=== PATIENT | female | born 1995 | race Caucasian/White ===

== ENCOUNTER 2017-01-18 16:53 | Inpatient (IN) | payer MEDICAID, OTHER ==
[~2017-01-18] VITALS: Ht 160 cm; Wt 71.0 kg
[2017-01-18] MEDS ORDERED: KETOROLAC 30 MG INJ IV STA (18:00)
[2017-01-18] MEDS ORDERED: ONDANSETRON 4 MG INJ IV STA (18:00)
[2017-01-18] MEDS ORDERED: SOD CHLORIDE 0.9% 1,000 ML IV ONE (18:00)
--- NOTE | 2017-01-18 18:00 | ERD ---
ER Documentation Chief Complaint Chief Complaint Right upper quad pain x 3 day, N/V (ROCIO CMCARTHY) HPI 21-year-old female presents emergency department for right upper abdominal pain for 3 days. Stated that she vomited a couple of times yesterday with nonbilious and nonbloody emesis. Concerned because she has family history of gallstones with cholecystectomy. her father and older brother had a cholecystectomy. LMP: January 04, 2017. A0. Denies headache, dizziness, blurred vision, neck pain, shoulder pain, chest pain , back pain, difficulty breathing, coughing, right lower abdominal pain, difficulty walking, constipation, diarrhea, or possibility of being , trauma, injury, falls, recent long travel, recent exposure to any illness, recent antibiotic use in the last 3 months, fever, chills. No known drug allergies. Past medical history of gastritis.. Surgical history : . Medication: Omeprazole. Social: Not working this time. Denies smoking, use of alcoholic beverages, use of illegal drugs. (ROCIO MCCARTHY) ROS All systems reviewed and are negative except as per history of present illness. (ROCIO MCCARTHY) Allergies Allergies: Coded Allergies: hydromorphone (Verified Adverse Reaction, Intermediate, CHEST PAIN, NAUSEA , HR LOW, 01/19/17) Physical Exam Vitals Vital Signs Date Time Temp Pulse Resp B/P Pulse Ox O2 Delivery O2 Flow Rate FiO2 01/18/17 20:13 87 20 143/87 100 Room Air 01/18/17 17:00 99.1 105 22 112/81 99 (CHELSEYMEKIFFI OROPEZA MD) Physical Exam Const: [] Head: Atraumatic Eyes: Normal Conjunctiva ENT: Normal External Ears, Nose and Mouth. Neck: Full range of motion..~ No meningismus. Resp: Clear to auscultation bilaterally Cardio: Regular rate and rhythm, no murmurs Abd: Normal bowel sounds. Right upper abdominal tenderness on light and deep palpation. There is no right lower/left upper/left lower abdominal tenderness and likely palpation. Negative on Rovsing sign. Negative Danielle sign. Able to jump once without developing right lower abdominal pain. No CVA tenderness. No peritoneal signs. Skin: No petechiae or rashes Back: No midline or flank tenderness Ext: No cyanosis, or edema Neur: Awake and alert Psych: Normal Mood and Affect (ROCIO MCCARTHY) Result Diagram: 01/19/17 0533 01/19/17 0527 Results 24 hrs Laboratory Tests Test 01/18/17 18:30 White Blood Count 10.810^3/ul Red Blood Count 4.6210^6/ul Hemoglobin 14.5g/dl Hematocrit 42.7% Mean Corpuscular Volume 92.4fl Mean Corpuscular Hemoglobin 31.4pg Mean Corpuscular Hemoglobin Concent 34.0g/dl Red Cell Distribution Width 11.7% Platelet Count 38563^3/UL Mean Platelet Volume 9.7fl Neutrophils % 70.0% Lymphocytes % 20.3% Monocytes % 7.8% Eosinophils % 1.3% Basophils % 0.4% Nucleated Red Blood Cells % 0.0/100WBC Neutrophils # 7.610^3/ul Lymphocytes # 2.210^3/ul Monocytes # 0.810^3/ul Eosinophils # 0.110^3/ul Basophils # 0.010^3/ul Nucleated Red Blood Cells # 0.010^3/ul Prothrombin Time 13.3Sec Prothrombin Time Ratio 1.1 INR International Normalized Ratio 1.01 Activated Partial Thromboplast Time 26.7Sec Urine Color YELLOW Urine Clarity SLIGHTLY CLOUDY Urine pH 7.0 Urine Specific [place] 1.013 Urine Ketones NEGATIVEmg/dL Urine Nitrite NEGATIVEmg/dL Urine Bilirubin NEGATIVEmg/dL Urine Urobilinogen 2+mg/dL Urine Leukocyte Esterase TRACELeu/ul Urine Microscopic RBC 3/HPF Urine Microscopic WBC 5/HPF Urine Squamous Epithelial Cells FEW/HPF Urine Bacteria FEW/HPF Urine Mucus FEW/HPF Urine Hemoglobin NEGATIVEmg/dL Urine Glucose NEGATIVEmg/dL Urine Total Protein NEGATIVEmg/dl Sodium Level 143mmol/L Potassium Level 3.1mmol/L Chloride Level 106mmol/L Carbon Dioxide Level 22mmol/L Anion Gap 18 Blood Urea Nitrogen 8mg/dl Creatinine 0.79mg/dl Glucose Level 75mg/dl Calcium Level 9.2mg/dl Total Bilirubin 1.6mg/dl Direct Bilirubin 0.00mg/dl Indirect Bilirubin 1.6mg/dl Aspartate Amino Transf (AST/SGOT) 86IU/L Alanine Aminotransferase (ALT/SGPT) 215IU/L Alkaline Phosphatase 199IU/L Total Protein 8.0g/dl Albumin 4.5g/dl Globulin 3.50g/dl Albumin/Globulin Ratio 1.28 Amylase Level 138U/L Lipase 391U/L Serum HCG, Qualitative NEGATIVE Current Medications Medications (Trade) Dose Ordered Sig/Serenity Route PRN Reason Start Time Stop Time Status Last Admin Dose Admin Sodium Chloride (NS) 1,000 ml @ 1,000 mls/hr Q1H ONCE IV 01/18/17 18:00 01/18/17 18:59 DC 01/18/17 18:39 Ondansetron HCl (Zofran Inj) 4 mg ONCE STAT IV 01/18/17 18:00 01/18/17 18:04 DC 01/18/17 18:39 Ketorolac Tromethamine (Toradol) 30 mg ONCE STAT IV 01/18/17 18:00 01/18/17 18:04 DC 01/18/17 18:39 Hydromorphone HCl (Dilaudid) 1 mg ONCE STAT IV 01/18/17 18:16 01/18/17 18:17 DC 01/18/17 18:39 IV Flush 10 ml 10 ml STK-MED ONCE .ROUTE 01/18/17 18:31 01/18/17 18:32 DC Sodium Chloride (NS) 100 ml @ ud STK-MED ONCE .ROUTE 01/18/17 18:31 01/18/17 18:32 DC Iohexol (Omnipaque 300mg/ ml) 150 ml STK-MED ONCE .ROUTE 01/18/17 18:31 01/18/17 18:32 DC Potassium Chloride (Klor-Con 20) 40 meq ONCE STAT PO 01/18/17 19:14 01/18/17 19:15 DC 01/18/17 19:35 Acetaminophen 500 mg 500 mg ONCE STAT PO 01/18/17 19:15 01/18/17 19:16 DC 01/18/17 19:35 Sodium Chloride (NS) 1,000 ml @ 200 mls/hr Q5H IV 01/18/17 21:47 01/19/17 12:43 (FIFI GALLEGOS MD) Procedures/MDM 21-year-old female presents emergency department for right upper abdominal pain for 3 days. Stated that she vomited a couple of times yesterday with nonbilious and nonbloody emesis. Concerned because she has family history of gallstones with cholecystectomy. her father and older brother had a cholecystectomy. LMP: January 04, 2017. A0. Denies headache, dizziness, blurred vision, neck pain, shoulder pain, chest pain , back pain, difficulty breathing, coughing, right lower abdominal pain, difficulty walking, constipation, diarrhea, or possibility of being , trauma, injury, falls, recent long travel, recent exposure to any illness, recent antibiotic use in the last 3 months, fever, chills. No known drug allergies. Past medical history of gastritis.. Surgical history : . Medication: Omeprazole. Social: Not working this time. Denies smoking, use of alcoholic beverages, use of illegal drugs. Physical exam: Right upper abdominal tenderness on light and deep palpation. There is no right lower/left upper/left lower abdominal tenderness and likely palpation. Negative on Rovsing sign. Negative Danielle sign. Able to jump once without developing right lower abdominal pain. No CVA tenderness. No peritoneal signs. Patient agreed with the diagnostic test, treatment, plan of care. POC urine : Negative. Urinalysis: Reviewed. Culture urine: Awaiting for results. Blood works: Hypokalemia. Elevated lipase. CT of the abdomen and pelvis with IV contrast: Abdominal ultrasound/gallbladder: Gallbladder stones and sludge without additional findings to suggest acute cholecystitis. Dilated common bile duct measuring 8.4 mm in diameter without a definite source of obstruction identified. MRCP can be performed for further evaluation. Treatment: IV insertion. Normal saline 1000 cc IV bolus. Zofran IV. Dilaudid IV. Toradol IV. K-Dur. Tylenol. Reevaluation: Mildly relieved of pain. Differential diagnosis: Acute cholecystitis versus pancreatitis versus diverticulitis versus nephrolithiasis versus appendicitis versus choledocholithiasis versus gastritis versus urinary tract infection Final diagnosis: Choledocholithiasis, mildly elevated lipase Case was discussed with supervising physician, Dr. Fifi Gallegos who agreed with my decision to admit the patient. She also stated that she will processed admission. (ROCIO MCCARTHY) Patient has labs and symptoms consistent with gallstone pancreatitis. There are no signs of cholangitis at this time. She will need admission and a GI consult in the morning for MRCP/ERCP. I discussed the case with the admitting physician , Dr. Rudolph, who agreed to admit the patient to Med/Surg. (FIFI GALLEGOS MD) Departure Diagnosis: Primary Impression: Acute gallstone pancreatitis Additional Impression: Choledocholithiasis Condition: ROCIO Arce Jan 18, 2017 18:00 FIFI GALLEGOS MD Jan 19, 2017 15:57
[2017-01-18] MEDS ORDERED: HYDROmorphONE 1 MG/ML SYG IV STA (18:16)
[2017-01-18] MEDS ORDERED: IOHEXOL 300MG/ML 150 ML BTL ONE (18:31)
[2017-01-18] MEDS ORDERED: SOD CHLORIDE 0.9% 100 ML ONE (18:31)
[2017-01-18 18:41] LABS: BASOPHILS % 0.4 % (0.0-2.0); EOSINOPHILS # 0.1 10^3/ul (0.0-0.5); EOSINOPHILS % 1.3 % (0.0-7.0); HEMATOCRIT 42.7 % (37.0-47.0); HEMOGLOBIN 14.5 g/dl (12.0-16.0); LYMPHOCYTES # 2.2 10^3/ul (0.8-2.9); LYMPHOCYTES % 20.3 % (15.0-51.0); MEAN CORPUSCULAR HEMOGLOBIN 31.4 pg (29.0-33.0); MEAN CORPUSCULAR VOLUME 92.4 fl (82.0-101.0); MEAN PLATELET VOLUME 9.7 fl (7.4-10.4); MONOCYTE # 0.8 10^3/ul (0.3-0.9); MONOCYTES % 7.8 % (0.0-11.0); NEUTROPHIL # 7.6 10^3/ul (1.6-7.5); PLATELET COUNT 425 10^3/UL (140-415); RED BLOOD COUNT 4.62 10^6/ul (4.20-5.40); RED CELL DISTRIBUTION WIDTH 11.7 % (11.5-14.5); WHITE BLOOD COUNT 10.8 10^3/ul (4.8-10.8)
[2017-01-18 18:45] LABS: ADD UMIC YES; UR ASCORBIC ACID NEGATIVE (NEGATIVE); UR BACTERIA FEW /HPF (NONE SEEN); UR BILIRUBIN (Dip) NEGATIVE (NEGATIVE); UR BLOOD (Dip) NEGATIVE (NEGATIVE); UR CLARITY SLIGHTLY CLOUDY (CLEAR); UR COLOR YELLOW (YELLOW); UR GLUCOSE (Dip) NEGATIVE (NEGATIVE); UR KETONES (Dip) NEGATIVE (NEGATIVE); UR LEUKOCYTE ESTERASE (Dip) TRACE Leu/ul (NEGATIVE); UR MUCUS FEW /HPF (NONE SEEN); UR NITRITE (Dip) NEGATIVE (NEGATIVE); UR RBC 3 /HPF (0-5); UR SPECIFIC GRAVITY (Dip) 1.013 (1.003-1.030); UR SQUAMOUS EPITHELIAL CELL FEW /HPF (FEW); UR TOTAL PROTEIN (Dip) NEGATIVE (NEGATIVE); UR UROBILINOGEN (Dip) 2+ mg/dL (NEGATIVE)
[2017-01-18 19:00] LABS: ALBUMIN 4.5 g/dl (3.3-4.9); ALBUMIN/GLOBULIN RATIO 1.28; BILIRUBIN,INDIRECT 1.6 mg/dl (0-1.1); BILIRUBIN,TOTAL 1.6 mg/dl (0.2-1.3); CALCIUM 9.2 mg/dl (8.4-10.2); CREATININE 0.79 mg/dl (0.44-1.00); POTASSIUM 3.1 mmol/L (3.5-5.1)
[2017-01-18 19:04] LABS: PT RATIO 1.1
[2017-01-18 19:05] LABS: PARTIAL THROMBOPLASTIN TIME 26.7 Sec (25.0-35.0)
[2017-01-18] MEDS ORDERED: POTASSIUM CHLORIDE (SR) 20 MEQ TAB PO STA (19:14)
[2017-01-18] MEDS ORDERED: ACETAMINOPHEN 500 MG TAB PO STA (19:15)
[2017-01-18 19:41] LABS: INR 1.01; PROTIME 13.3 Sec (12.2-14.2)
--- NOTE | 2017-01-18 19:56 | RADRPT ---
PROCEDURE: US abdomen right upper quadrant CLINICAL INDICATION: Abdominal pain. TECHNIQUE: Lugo scale and color Doppler ultrasound of the right upper quadrant of the abdomen was p erformed. COMPARISON: None available. FINDINGS: Pancreas: Visualized portions are unremarkable. Liver: Normal in size and echogenicity with no focal hepatic lesion. Hepatopedal flow in the main po rtal vein. Gallbladder: There stones and sludge within the gallbladder without gallbladder wall thickening or p ericholecystic fluid. Negative sonographic Johansen's sign. Common bile duct: 8.4 mm in diameter. Right Kidney: 10.3 cm in length. No nephrolithiasis, hydronephrosis, or mass. Ascites: None. IMPRESSION: 1. Gallbladder stones and sludge without additional findings to suggest acute cholecystitis. 2. Dilated common bile duct measuring 8.4 mm in diameter without a definite source of obstruction i dentified. MRCP can be performed for further evaluation. RPTAT: HLBP .Terrell Lilly MD, Date Time Electronically viewed and signed by .Terrell Lilly MD, MD on 01/18/2017 19:55 .P/
[2017-01-18] MEDS ORDERED: ACETAMINOPHEN 325 MG TAB PO PRN ×2 (22:00)
[2017-01-18] MEDS ORDERED: BISACODYL (EC) 5 MG TAB PO PRN (22:00)
[2017-01-18] MEDS ORDERED: ONDANSETRON 4 MG INJ IV PRN (22:00)
[2017-01-18] MEDS ORDERED: NACL 0.9% 3 ML SYG IV SCH (22:00)
[2017-01-18] MEDS ORDERED: DOCUSATE SODIUM 100 MG CAP PO PRN (22:00)
--- NOTE | 2017-01-18 22:47 | HP ---
Date/Time of Note Date/Time of Note DATE: 01/18/17 TIME: 22:46 Assessment/Plan VTE Prophylaxis VTE Prophylaxis Intervention: SCD's Assessment/Plan Chief Complaint/Hosp Course This is a 21 old female being admitted to the [facility] floor for: #1 gallstone pancreatitis: On ultrasound there appears to be a dilated common bile duct of 8.4 mm patient also has an increased lipase level as well as transaminitis, which makes gallstone pancreatitis more likely. At the current time will initiate aggressive IV fluid hydration, keep the patient n.p.o., bowel rest, IV narcotics for pain control, Zofran for nausea. Will start the patient on antibiotics as well with concern for possible development of cholecystitis and/or cholangitis. Will order an MRCP in a.m. Will consult GI as patient may likely need ERCP. Will check a lipid panel, A1c, #2 gastritis: Continue PPI #3 DVT GI prophylaxis: SCDs, home PPI Further treatment strategy will be implemented as per the clinical course Problems: HPI/ROS Admit Date/Time Admit Date/Time Hx of Present Illness cc: abdominal pain 21-year-old female presents emergency department for right upper abdominal pain for 3 days. Patient reports that the pain started on her right upper quadrant and one around to the back. She also is experiencing nausea and vomiting. She was in [place] the pain first started and went to hospital down there and they gave her pain medicine and then discharge her. Her pain got worse as when she came in today. Denies any fevers. LMP: January 04, 2017. A0. Denies headache, dizziness, blurred vision, neck pain, shoulder pain, chest pain , back pain, difficulty breathing, coughing, right lower abdominal pain, difficulty walking, constipation, diarrhea, or possibility of being , trauma, injury, falls, recent long travel, recent exposure to any illness, recent antibiotic use in the last 3 months, fever, chills. Allergies: NKDA Medications: Omeprazole ROS Const: As per HPI Eyes : No pain discharge or redness or change in visual acuity ENT: No pain, sore throat, congestion, congestion, dysphagia or discharge Respiratory: No shortness of breath, cough, sputum, wheezing, or pleuritic pain Cardiovascular: No chest pain, palpitation, PND, or edema GI : As per HPI Genitourinary: No dysuria, hematuria, flank pain , discharge or CVA tenderness Musculoskeletal: No joint pain, back pain, neck pain, restricted range of motion in neck or joints Skin: No rash, bruising or hives Neuro: No headache, dizziness, syncope, seizure, focal weakness Endocrine: No polyuria, polydipsia, temperature intolerance Psych: No hallucination, depression, anxiety or suicidal ideation PMH/Family/Social Past Medical History Gastritis Past Surgical History 1 Family History Significant Family History: no pertinent family hx Social History Alcohol Use: none Smoking Status: Never smoker Drug Use: none Exam/Review of Systems Vital Signs Vitals Vital Signs Date Time Temp Pulse Resp B/P Pulse Ox O2 Delivery O2 Flow Rate FiO2 01/18/17 20:13 87 20 143/87 100 Room Air 01/18/17 17:00 99.1 Exam Exam General: Patient is lying in bed, in mild distress from pain HEENT: Atraumatic, normocephalic. The pupils are equal, round and reactive. Extraocular motor are intact Neck: Supple with full range of motion. No rigidity or meningismus Lungs: Clear to auscultation bilaterally no crackles rales or wheezing Heart: Normal S1-S2, Regular rhythm and rate. No murmur, S3, or S4 Abdomen: Soft, tender to palpation at the epigastric region nondistended, normal bowel sounds, t Extremities: Normal to inspection, no edema no cyanosis Neurologic: Normal mental status, speech normal, cranial nerves II through XII are intact, motor and sensory are intact, no focal weakness Additional Comments PROCEDURE: US abdomen right upper quadrant CLINICAL INDICATION: Abdominal pain. TECHNIQUE: Lugo scale and color Doppler ultrasound of the right upper quadrant of the abdomen was performed. COMPARISON: None available. FINDINGS: Pancreas: Visualized portions are unremarkable. Liver: Normal in size and echogenicity with no focal hepatic lesion. Hepatopedal flow in the main portal vein. Gallbladder: There stones and sludge within the gallbladder without gallbladder wall thickening or pericholecystic fluid. Negative sonographic Johansen's sign. Common bile duct: 8.4 mm in diameter. Right Kidney: 10.3 cm in length. No nephrolithiasis, hydronephrosis, or mass. Ascites: None. IMPRESSION: 1. Gallbladder stones and sludge without additional findings to suggest acute cholecystitis. 2. Dilated common bile duct measuring 8.4 mm in diameter without a definite source of obstruction identified. MRCP can be performed for further evaluation. RPTAT: HLBP .Terrell Lilly MD, MD Date Time Electronically viewed and signed by .Terrell Lilly MD, on 01/18/2017 19:55 .P/ CC: ROCIO MCCARTHY Labs Result Diagram: 01/18/17 1830 01/18/17 1830 Medications Medications Current Medications Sodium Chloride (NS) 1,000 ml @ 200 mls/hr Q5H IV ; Start 01/18/17 at 21:47 Ondansetron HCl (Zofran Inj) 4 mg Q6H PRN IV NAUSEA AND/OR VOMITING; Start at 22:00 Acetaminophen (Tylenol Tab) 650 mg Q6H PRN PO PAIN LEVEL 1-3 OR FEVER; Start 01/18/17 at 22:00 Hydromorphone HCl (Dilaudid) 0.5 mg Q4H PRN IV SEVERE PAIN LEVEL 7-10; Start 01/18/17 at 22:00 Docusate Sodium (Colace) 100 mg Q12H PRN PO CONSTIPATION; Start 01/18/17 at 22 :00 Bisacodyl (Dulcolax) 5 mg DAILY PRN PO CONSTIPATION; Start 01/18/17 at 22:00 Pantoprazole 40 mg 40 mg DAILY@06 IV ; Start 01/19/17 at 06:00 Piperacillin Sod/ Tazobactam Sod (Zosyn 3.375gm/ 50 ml (Pmx)) 50 ml @ 100 mls/ hr Q6 IVPB ; Start 01/18/17 at 22:00 RUBEN MARCELO Jan 18, 2017 22:46
[2017-01-19] VITALS (17 sets, daily range): BP systolic 100–125; BP diastolic 58–84; PULSE 54–88; RESP 11–20; TEMP 97.9; Ht 160 cm; Wt 71.0 kg
[2017-01-19] MEDS: SOD CHLORIDE 0.9% 1,000 ML IV SCH ×7 (00:48→22:47)
[2017-01-19] MEDS: PIPER-TAZO 3.375 GM IV (PMX) 50 ML IVPB SCH ×6 (00:48→23:32)
[2017-01-19] MEDS: HYDROmorphONE 0.5 MG/0.5 ML SYG IV PRN ×2 (03:22→09:31)
[2017-01-19] MEDS: PANTOPRAZOLE 40 MG INJ IV SCH (05:33)
[2017-01-19 06:30] LABS: BASOPHILS % 0.3 % (0.0-2.0); EOSINOPHILS # 0.1 10^3/ul (0.0-0.5); EOSINOPHILS % 1.9 % (0.0-7.0); HEMATOCRIT 36.7 % (37.0-47.0); HEMOGLOBIN 12.3 g/dl (12.0-16.0); LYMPHOCYTES # 1.5 10^3/ul (0.8-2.9); LYMPHOCYTES % 21.3 % (15.0-51.0); MEAN CORPUSCULAR HEMOGLOBIN 31.6 pg (29.0-33.0); MEAN CORPUSCULAR HGB CONC 33.5 g/dl (32.0-37.0); MEAN CORPUSCULAR VOLUME 94.3 fl (82.0-101.0); MONOCYTE # 0.6 10^3/ul (0.3-0.9); MONOCYTES % 9.1 % (0.0-11.0); NEUTROPHIL # 4.7 10^3/ul (1.6-7.5); NEUTROPHILS % 67.1 % (39.0-77.0); PLATELET COUNT 336 10^3/UL (140-415); RED BLOOD COUNT 3.89 10^6/ul (4.20-5.40); RED CELL DISTRIBUTION WIDTH 11.9 % (11.5-14.5); WHITE BLOOD COUNT 6.9 10^3/ul (4.8-10.8)
[2017-01-19 07:05] LABS: ALBUMIN/GLOBULIN RATIO 0.9; BILIRUBIN,DIRECT 0.2 mg/dl (0.00-0.20); BILIRUBIN,INDIRECT 1.7 mg/dl (0-1.1); BILIRUBIN,TOTAL 1.9 mg/dl (0.2-1.3); CALCIUM 8.3 mg/dl (8.4-10.2); CHOL/HDL RATIO 2.8 RATIO; CREATININE 0.75 mg/dl (0.44-1.00); MAGNESIUM 1.7 mg/dl (1.7-2.5); TOTAL PROTEIN 6.3 g/dl (6.1-8.1)
[2017-01-19 07:26] LABS: THYROID STIMULATING HORMONE 1.15 MIU/L (0.465-4.680)
[2017-01-19] MEDS: ONDANSETRON 4 MG INJ IV PRN ×2 (09:31→21:46)
[2017-01-19] MEDS ORDERED: morphine 2 MG INJ IV PRN (11:30)
--- NOTE | 2017-01-19 14:51 | PN ---
Date/Time of Note Date/Time of Note DATE: 01/19/17 TIME: 14:45 Assessment/Plan VTE Prophylaxis VTE Prophylaxis Intervention: SCD's Lines/Catheters IV Catheter Type (from Nrsg): Saline Lock Assessment/Plan Assessment/Plan 1. Gallstone pancreatitis - Abdominal US showed dilated common bile duct of 8.4 mm - Lipase levels 391 - Continue on IVF and keep NPO - Zofran PRN for nausea - Pain control with Toradol and Morphine - Continue on IV antibiotics - Patient remains afebrile with nl WBC - MRCP ordered and awaiting results - GI consultation placed to Dr. Fiore and will await recommendations - LFT trending up 2. Gastritis - Continue PPI 3. Disposition - Continue monitoring on Med/Surg Subjective 24 Hr Interval Summary Free Text/Dictation Patient still experiencing epigastric/RUQ discomfort. After dose of Dilaudid this am patient felt chest discomfort, was garrett, and nauseated with episode of emesis. This same reaction occurred in ED and medication stopped. Patient improved and medications were adjusted. Exam/Review of Systems Vital Signs Vitals Vital Signs Date Time Temp Pulse Resp B/P Pulse Ox O2 Delivery O2 Flow Rate FiO2 01/19/17 13:21 97.4 55 18 123/59 100 01/19/17 11:03 Nasal Cannula 2.0 Intake and Output 01/18/17 01/18/17 01/19/17 15:00 23:00 07:00 Intake Total 1150 ml Output Total 1 ml Balance 1149 ml Exam General: Patient is lying in bed, mild distress secondary to affects of pain medications HEENT: NC/AT. PERRL, EOMI Neck: Supple with full range of motion. Lungs: Clear to auscultation bilaterally no crackles rales or wheezing Heart: Normal S1-S2, Regular rhythm and rate. No murmur, S3, or S4 Abdomen: Soft, tender to palpation at the epigastric region nondistended, normal bowel sounds, no rebound or guarding Extremities: Normal to inspection, no edema no cyanosis Neurologic: Normal mental status, speech normal, cranial nerves II through XII are intact, motor and sensory are intact, no focal weakness Results Result Diagram: 01/19/17 0533 01/19/17 0527 Results 24 hrs Laboratory Tests Test 01/18/17 18:30 01/19/17 05:27 01/19/17 05:33 White Blood Count 10.8 6.9 # Red Blood Count 4.62 3.89 L Hemoglobin 14.5 12.3 Hematocrit 42.7 36.7 L Mean Corpuscular Volume 92.4 94.3 Mean Corpuscular Hemoglobin 31.4 31.6 Mean Corpuscular Hemoglobin Concent 34.0 33.5 Red Cell Distribution Width 11.7 11.9 Platelet Count 425 H 336 # Mean Platelet Volume 9.7 10.0 Neutrophils % 70.0 67.1 Lymphocytes % 20.3 21.3 Monocytes % 7.8 9.1 Eosinophils % 1.3 1.9 Basophils % 0.4 0.3 Nucleated Red Blood Cells % 0.0 0.0 Neutrophils # 7.6 H 4.7 Lymphocytes # 2.2 1.5 Monocytes # 0.8 0.6 Eosinophils # 0.1 0.1 Basophils # 0.0 0.0 Nucleated Red Blood Cells # 0.0 0.0 Prothrombin Time 13.3 Prothrombin Time Ratio 1.1 INR International Normalized Ratio 1.01 Activated Partial Thromboplast Time 26.7 Urine Color YELLOW Urine Clarity SLIGHTLY CLOUDY A Urine pH 7.0 Urine Specific [place] 1.013 Urine Ketones NEGATIVE Urine Nitrite NEGATIVE Urine Bilirubin NEGATIVE Urine Urobilinogen 2+ H Urine Leukocyte Esterase TRACE A Urine Microscopic RBC 3 Urine Microscopic WBC 5 Urine Squamous Epithelial Cells FEW Urine Bacteria FEW A Urine Mucus FEW A Urine Hemoglobin NEGATIVE Urine Glucose NEGATIVE Urine Total Protein NEGATIVE Sodium Level 143 143 Potassium Level 3.1 L 4.0 Chloride Level 106 111 H Carbon Dioxide Level 22 26 Anion Gap 18 H 10 # Blood Urea Nitrogen 8 7 Creatinine 0.79 0.75 Glucose Level 75 89 Calcium Level 9.2 8.3 L Total Bilirubin 1.6 H 1.9 H Direct Bilirubin 0.00 0.20 # Indirect Bilirubin 1.6 H 1.7 H Aspartate Amino Transf (AST/SGOT) 86 H 185 H Alanine Aminotransferase (ALT/SGPT) 215 H 258 H Alkaline Phosphatase 199 H 150 H Total Protein 8.0 6.3 # Albumin 4.5 3.0 #L Globulin 3.50 H 3.30 H Albumin/Globulin Ratio 1.28 0.90 Amylase Level 138 H Lipase 391 H Serum HCG, Qualitative NEGATIVE Magnesium Level 1.7 Triglycerides Level 55 Cholesterol Level 116 LDL Cholesterol, Calculated 64 HDL Cholesterol 41 Cholesterol/HDL Ratio 2.8 Thyroid Stimulating Hormone (TSH) 1.150 Hemoglobin A1c 4.9 Medications Medications Current Medications Sodium Chloride (NS) 1,000 ml @ 200 mls/hr Q5H IV Last administered on 12:43; Admin Dose 200 MLS/HR; Start 01/18/17 at 21:47 Ondansetron HCl (Zofran Inj) 4 mg Q6H PRN IV NAUSEA AND/OR VOMITING Last administered on 01/19/17 09:31; Admin Dose 4 MG; Start 01/18/17 at 22:00 Acetaminophen (Tylenol Tab) 650 mg Q6H PRN PO PAIN LEVEL 1-3 OR FEVER; Start 01/18/17 at 22:00 Docusate Sodium (Colace) 100 mg Q12H PRN PO CONSTIPATION; Start 01/18/17 at 22 :00 Bisacodyl (Dulcolax) 5 mg DAILY PRN PO CONSTIPATION; Start 01/18/17 at 22:00 Pantoprazole 40 mg 40 mg DAILY@06 IV Last administered on 01/19/17 05:33; Admin Dose 40 MG; Start 01/19/17 at 06:00 Piperacillin Sod/ Tazobactam Sod (Zosyn 3.375gm/ 50 ml (Pmx)) 50 ml @ 100 mls/ hr Q6 IVPB Last administered on 01/19/17 12:42; Admin Dose 100 MLS/HR; Start 01/18/17 at 22:00 Ketorolac Tromethamine (Toradol) 30 mg Q6H PRN IV PAIN; Start 01/19/17 at 11: 30; Stop 01/22/17 at 11:29 Morphine Sulfate (morphine) 1 mg Q4H PRN IV PAIN LEVEL 4-6; Start 01/19/17 at 11:30 MELINDA MONTERO MD Jan 19, 2017 14:51
--- NOTE | 2017-01-19 15:44 | RADRPT ---
PROCEDURE: MRCP. CLINICAL INDICATION: Elevated liver function tests. TECHNIQUE: MRCP was performed. The following sequences were obtained: Three plane gradient echo localizers, coronal gradient echo images, breath hold axial T2-weighted fat saturation images, callie nal T2-weighted images, axial 3-D LAVA images, axial T2-weighted breath hold fast spin echo images, and 3-D coronal rotating MIP images of the biliary tree. COMPARISON: Right upper quadrant abdomen ultrasound dated 01/18/2017. FINDINGS: The liver is normal in size. There is normal signal intensity within the liver. There is no focal hepatic lesion. The spleen is normal in size and homogeneous in signal intensity. There are gallstones in the gallbladder and mild edema surrounding the gallbladder. Common bile duct is dilated measuring 8 mm as seen on prior ultrasound. There is a possible small st one in the distal common bile duct. The biliary system is otherwise unremarkable. The pancreatic duct is grossly normal. The kidneys are grossly normal. The abdominal aorta is not dilated. IMPRESSION: 1. Gallstones in the gallbladder and mild edema surrounding the gallbladder. This may indicate chol ecystitis. Clinical correlation is advised. 2. Dilated common bile duct measuring 8 mm as seen on prior ultrasound. 3. Possible small stone in the distal common bile duct. 4. Otherwise unremarkable study. Call report: A call report of the findings was made to Dr. Fiore on 01/19/2017 at 1530hours. RPTAT: QQ .Dung Whiting MD, Date Time Electronically viewed and signed by .Dung Whiting MD, on 01/19/2017 15:43 .R/
[2017-01-19] MEDS: KETOROLAC 30 MG INJ IV PRN (17:00)
--- NOTE | 2017-01-19 17:17 | CONS ---
DATE OF ADMISSION: 01/18/2017 DATE OF CONSULTATION: TYPE OF CONSULTATION: Gastroenterology. Dear Dr. Marcelo: Thank you for asking me to see Ms. Florez in GI consultation. HISTORY OF PRESENT ILLNESS: Ms. Florez is a 21-year-old female who has been experiencing ab dominal pain for the past several days, mostly in the upper abdomen, and because of the persistent a bdominal pain, she presented to the emergency room. Ultrasound showed gallstones with biliary dilat ation, and liver functions were found to be abnormal. MRCP showed evidence of a stone in the distal common bile duct with biliary dilatation. Hence, a GI consultation is requested. The patient has no history of vomiting blood or passing blood from the rectum. No diarrhea. PAST MEDICAL HISTORY: She had a baby recently. REVIEW OF SYSTEMS: Totally unremarkable. No history of cardiovascular complaints or any other medi susan complaints. MEDICATIONS PRIOR TO THE ADMISSION: Include none. FAMILY HISTORY: Unremarkable. PHYSICAL EXAMINATION: GENERAL: The patient is a 21-year-old female who at this time is alert, well built. VITAL SIGNS: She is afebrile. Temperature is 97.4. Blood pressure is 123/59. CARDIOVASCULAR: Normal heart sounds. RESPIRATORY: Normal breath sounds. ABDOMEN: Showed a soft abdomen with no palpable masses, no tenderness, no distention. LABORATORY WORKUP: Shows WBC count 6900, hemoglobin 12.3. Bilirubin 1.98, went up from 1.6. AST i s 185, ALT is 258, alk phos 150. Amylase 138. Lipase is 391. As mentioned earlier on ultrasound, MRCP showed cholelithiasis and choledocholithiasis. CLINICAL IMPRESSION: The patient presenting with abdominal pain with jaundice. MRCP showed choledo cholithiasis and she probably represents cholangitis due to choledocholithiasis. PLAN: Recommend proceeding with ERCP. I discussed this with the patient, and the patient agreed th rough waterproofer. She understood and will proceed with ERCP. Once again, doctor, thank you for this consultation. Dictated By: BRIAN HUGHES/NTS Conf#: [id number] DID#: [id number] CC: RUBEN MARCELO MD;*EndCC*
[2017-01-19] MEDS ORDERED: GLYCOPYRROLATE 1 MG INJ ONE (18:11)
[2017-01-19] MEDS ORDERED: ROCURONIUM 50 MG INJ ONE (18:11)
[2017-01-19] MEDS ORDERED: SUCCINYLCHOLINE CHLORIDE 100 MG/5 ML SYG IV ONE (18:11)
[2017-01-19] MEDS ORDERED: NEOSTIGMINE 3 MG/3 ML SYRINGE ONE (18:11)
[2017-01-19] MEDS ORDERED: PROPOFOL 20 ML ONE (18:11)
[2017-01-19] MEDS ORDERED: LIDOCAINE 2% (SDV) 5 ML INJ ONE (18:11)
[2017-01-19] MEDS ORDERED: ONDANSETRON 4 MG INJ ONE (18:29)
[2017-01-19] MEDS ORDERED: METOCLOPRAMIDE 10 MG INJ ONE (18:29)
[2017-01-19] MEDS ORDERED: ONDANSETRON 4 MG INJ IV PRN (18:30)
[2017-01-19] MEDS ORDERED: MEPERIDINE 25 MG INJ IV PRN (18:30)
[2017-01-19] MEDS ORDERED: FENTAnyl 50 MCG/ML VIAL IV PRN ×3 (18:30)
[2017-01-19] MEDS ORDERED: METOCLOPRAMIDE 10 MG INJ IV PRN (18:30)
[2017-01-19] MEDS ORDERED: MIDAZOLAM 1 MG/ML 2 ML INJ IV PRN (18:30)
[2017-01-19] MEDS ORDERED: DIPHENHYDRAMINE 50 MG INJ IV PRN (18:30)
--- NOTE | 2017-01-19 19:02 | OPR ---
Date/Time of Note Date/Time of Note DATE: 01/19/17 TIME: 19:00 Operative Report Procedure Date: Jan 19, 2017 Preoperative Diagnosis cbd stone Postoperative Diagnosis cbd stone Operation/Procedure Performed ercp Surgeon see signature line Diagrammer none Anesthesia Type: general Anesthesiologist: SAMEER DEXTER MD Estimated Blood Loss: none Transfusion none Specimen gastric bx Grafts/Implants cbd stent placed Complications none Pt Condition Post Procedure: stable Disposition: PACU Indications cbd stone Procedure Description ercp cbd stone removel cbd stent placement see dictation BRIAN ESPINO MD Jan 19, 2017 19:02
--- NOTE | 2017-01-19 20:13 | GILP ---
DATE OF PROCEDURE: 01/19/2017 NAME OF PROCEDURE: ERCP, removal of CBD stone and placement of a CBD stent. PREOPERATIVE DIAGNOSIS: Common bile duct stone. POSTOPERATIVE DIAGNOSES: Common bile duct stone. DESCRIPTION OF PROCEDURE: After informed written consent was obtained, the patient was intubated by anesthesiologist, Dr. Anaya. When the patient was sleeping in prone position, Olympus video side-vie wing duodenoscope was inserted into the oropharynx and then into the esophagus and then stomach and then duodenum. Stomach showed evidence of a diffuse nodularity. Scope at this time was advanced in to the duodenum. The ampulla was located in normal location with normal morphology. By using the D reamtome, cannulation of the common bile duct was performed. Filling defect was noted in the lower part of the CBD. At this time, the gallbladder also was visualized, which showed gallstones. The r est of the bile duct appeared normal. At this time, sphincterotomy was performed, about a 7 mm cut of the ampulla was made by using the cutting wire of the Dreamtome. Subsequently, by using the ston e extraction balloon, the stone was removed from the common bile duct, which measured at least about 7 to 8 mm in diameter. More sweeping of the common bile duct was performed. No more stones were n oted. At this time, a 10 x 7 [place] type of CBD stent was placed into the common bile duct acros s the ampulla into the duodenum. Photographs were obtained. Biopsies of the stomach were obtained and the procedure was terminated. PLAN: Recommend proceed with cholecystectomy. Dictated By: BRIAN HUGHES/ELIZA Conf#: [id number] DID#: [id number] CC: RUBEN MARCELO MD;*EndCC*
[2017-01-20 02:30] VITALS: BP 91/54; RESP 20
[2017-01-20] MEDS: SOD CHLORIDE 0.9% 1,000 ML IV SCH ×3 (02:31→13:47)
[2017-01-20 05:32] LABS: BASOPHILS % 0.4 % (0.0-2.0); EOSINOPHILS # 0.1 10^3/ul (0.0-0.5); EOSINOPHILS % 1.8 % (0.0-7.0); HEMATOCRIT 35.6 % (37.0-47.0); LYMPHOCYTES # 1.5 10^3/ul (0.8-2.9); LYMPHOCYTES % 20.3 % (15.0-51.0); MEAN CORPUSCULAR HEMOGLOBIN 32.3 pg (29.0-33.0); MEAN CORPUSCULAR HGB CONC 33.7 g/dl (32.0-37.0); MEAN CORPUSCULAR VOLUME 95.7 fl (82.0-101.0); MEAN PLATELET VOLUME 9.9 fl (7.4-10.4); MONOCYTE # 0.5 10^3/ul (0.3-0.9); MONOCYTES % 6.9 % (0.0-11.0); NEUTROPHIL # 5.2 10^3/ul (1.6-7.5); NEUTROPHILS % 70.3 % (39.0-77.0); PLATELET COUNT 300 10^3/UL (140-415); RED BLOOD COUNT 3.72 10^6/ul (4.20-5.40); RED CELL DISTRIBUTION WIDTH 11.6 % (11.5-14.5); WHITE BLOOD COUNT 7.4 10^3/ul (4.8-10.8)
[2017-01-20] MEDS: PIPER-TAZO 3.375 GM IV (PMX) 50 ML IVPB SCH ×4 (05:38→23:39)
[2017-01-20] MEDS: PANTOPRAZOLE 40 MG INJ IV SCH (05:38)
[2017-01-20 06:06] LABS: ALBUMIN 3.4 g/dl (3.3-4.9); ALBUMIN/GLOBULIN RATIO 1.09; BILIRUBIN,INDIRECT 2.2 mg/dl (0-1.1); BILIRUBIN,TOTAL 2.2 mg/dl (0.2-1.3); CALCIUM 8.3 mg/dl (8.4-10.2); CREATININE 0.67 mg/dl (0.44-1.00); MAGNESIUM 1.5 mg/dl (1.7-2.5); POTASSIUM 3.7 mmol/L (3.5-5.1); TOTAL PROTEIN 6.5 g/dl (6.1-8.1)
[2017-01-20 07:23] VITALS: BP 105/56; RESP 20
--- NOTE | 2017-01-20 09:16 | PN ---
Date/Time of Note Date/Time of Note DATE: 01/20/17 TIME: 09:16 Assessment/Plan VTE Prophylaxis VTE Prophylaxis Intervention: SCD's Lines/Catheters IV [facility]from [facility]): Saline Lock Assessment/Plan Assessment/Plan 1. Gallstone pancreatitis s/p ERCP - Patient underwent ERCP yesterday and patient tolerated procedure. - Started on clear liquid and advance as tolerated. - Encourage PO pain medications for relief - IV antibiotics - Abdominal US showed dilated common bile duct of 8.4 mm - Lipase levels 391 - Zofran PRN for nausea - Patient remains afebrile with nl WBC - LFT still elevated 2. Acute cholecystitis - MRCP shows acute cholecystitis - LFT elevated, Tbil trending up - Will consult General surgery to evaluate if needs surgery now or as outpatient 3. Disposition - Continue monitoring on Med/Surg - Surgery consult placed to Dr. Patricia Subjective 24 Hr Interval Summary Free Text/Dictation patient experiencing lower abdominal pain s/p ERCP but controlled with pain medications. Will try feeding patient today and will advance as tolerated. Exam/Review of Systems Vital Signs Vitals Vital Signs Date Time Temp Pulse Resp B/P Pulse Ox O2 Delivery O2 Flow Rate FiO2 01/20/17 07:23 98.9 81 20 105/56 98 01/19/17 19:47 Room Air 01/19/17 11:03 2.0 Intake and Output 01/19/17 01/19/17 01/20/17 14:59 22:59 06:59 Intake Total 1000 ml 700 ml 1700 ml Output Total 900 ml 800 ml Balance 1000 ml -200 ml 900 ml Exam General: Patient is lying in bed, no acute distress HEENT: NC/AT. PERRL, EOMI Neck: Supple with full range of motion. Lungs: Clear to auscultation bilaterally no crackles rales or wheezing Heart: Normal S1-S2, Regular rhythm and rate. No murmur, S3, or S4 Abdomen: Soft, tender to palpation at lower abdominal area, normal bowel sounds , no rebound or guarding Extremities: Normal to inspection, no edema no cyanosis Neurologic: Normal mental status, speech normal, cranial nerves II through XII are intact, motor and sensory are intact, no focal weakness Results Result Diagram: 01/20/17 0509 01/20/17 0509 Results 24 hrs Laboratory Tests Test 01/20/17 05:09 White Blood Count 7.4 Red Blood Count 3.72 L Hemoglobin 12.0 Hematocrit 35.6 L Mean Corpuscular Volume 95.7 Mean Corpuscular Hemoglobin 32.3 Mean Corpuscular Hemoglobin Concent 33.7 Red Cell Distribution Width 11.6 Platelet Count 300 Mean Platelet Volume 9.9 Neutrophils % 70.3 Lymphocytes % 20.3 Monocytes % 6.9 Eosinophils % 1.8 Basophils % 0.4 Nucleated Red Blood Cells % 0.0 Neutrophils # 5.2 Lymphocytes # 1.5 Monocytes # 0.5 Eosinophils # 0.1 Basophils # 0.0 Nucleated Red Blood Cells # 0.0 Sodium Level 141 Potassium Level 3.7 Chloride Level 109 Carbon Dioxide Level 20 L Anion Gap 16 Blood Urea Nitrogen 5 L Creatinine 0.67 Glucose Level 68 #L Calcium Level 8.3 L Magnesium Level 1.5 L Total Bilirubin 2.2 H Direct Bilirubin 0.00 # Indirect Bilirubin 2.2 H Aspartate Amino Transf (AST/SGOT) 61 H Alanine Aminotransferase (ALT/SGPT) 221 H Alkaline Phosphatase 154 H Total Protein 6.5 Albumin 3.4 Globulin 3.10 Albumin/Globulin Ratio 1.09 Medications Medications Current Medications Sodium Chloride (NS) 1,000 ml @ 200 mls/hr Q5H IV Last administered on 08:25; Admin Dose 200 MLS/HR; Start 01/18/17 at 21:47 Ondansetron HCl (Zofran Inj) 4 mg Q6H PRN IV NAUSEA AND/OR VOMITING Last administered on 01/19/17 21:46; Admin Dose 4 MG; Start 01/18/17 at 22:00 Acetaminophen (Tylenol Tab) 650 mg Q6H PRN PO PAIN LEVEL 1-3 OR FEVER; Start 01/18/17 at 22:00 Docusate Sodium (Colace) 100 mg Q12H PRN PO CONSTIPATION; Start 01/18/17 at 22 :00 Bisacodyl (Dulcolax) 5 mg DAILY PRN PO CONSTIPATION; Start 01/18/17 at 22:00 Pantoprazole 40 mg 40 mg DAILY@06 IV Last administered on 01/20/17 05:38; Admin Dose 40 MG; Start 01/19/17 at 06:00 Piperacillin Sod/ Tazobactam Sod (Zosyn 3.375gm/ 50 ml (Pmx)) 50 ml @ 100 mls/ hr Q6 IVPB Last administered on 01/20/17 05:38; Admin Dose 100 MLS/HR; Start 01/18/17 at 22:00 Ketorolac Tromethamine (Toradol) 30 mg Q6H PRN IV PAIN Last administered on 17:00; Admin Dose 30 MG; Start 01/19/17 at 11:30; Stop 01/22/17 at 11: 29 Morphine Sulfate (morphine) 1 mg Q4H PRN IV PAIN LEVEL 4-6; Start 01/19/17 at 11:30 MELINDA MONTERO MD Jan 20, 2017 09:16
[2017-01-20] MEDS: KETOROLAC 30 MG INJ IV PRN (09:32)
[2017-01-20] MEDS ORDERED: MAGNESIUM SULFATE 2 GM/50 ML 50 ML IVPB ONE (10:00)
[2017-01-20 13:28] VITALS: BP 99/55; RESP 20
--- NOTE | 2017-01-20 19:50 | CONS ---
Date/Time of Note Date/Time of Note DATE: 01/20/17 TIME: 19:39 Assessment/Plan Assessment/Plan Chief Complaint/Hosp Course 1. Abdominal pain with cholelithiasis, choledocholithiasis, gallstone pancreatitis, status post ERCP. -Eventual outpatient laparoscopic cholecystectomy -Judicious fluid management to allow pancreatitis to improve -Pain control 2. Transaminitis secondary to above. -As above 3. Gastritis -Diet and lifestyle optimization 4. BMI 28 -Encourage nutrition optimization -Encourage exercise optimization Thank you very much for consulting me in this patient's care, Problems: Consultation Date/Type/Reason Admit Date/Time Date of Consultation: Jan 20, 2017 Type of Consultation: G. Surgical Reason for Consultation Gallstone pancreatitis Transaminitis Choledocholithiasis s/p ercp Referring Provider: MELINDA MONTERO MD Hx of Present Illness Sabina Florez is a 21yo female who presents to emergency department for right upper abdominal pain for 3 days. Patient reports that the pain started on her right upper quadrant and radiated to the back. She also is experiencing nausea and vomiting. She was in [place] the pain first started and went to hospital down there and they gave her pain medicine and then discharge her. Her pain got worse she presented here. Denies any fevers, chills, cp, sob, cough, sz, rash, bennett, dizziness, visual or neuro changes. Patient was found to have choledocholithiasis with gs pancreatitis. She underwent ercp and stent by Dr. Fiore. Surgical consult now obtained for further evaluation and treatment. 12 point ros negative unless addressed in hpi Past Medical History Gastritis BMI 28 Cholelithiasis Choledocholithiasis Dilated CBD Pancreatitis Transaminitis with Hyperbilirubinemia Past Surgical History 1 ERCP Family History Significant Family History: no pertinent family hx Social History Alcohol Use: none Smoking Status: Never smoker Drug Use: none Exam/Review of Systems Vital Signs Vitals Vital Signs Date Time Temp Pulse Resp B/P Pulse Ox O2 Delivery O2 Flow Rate FiO2 01/20/17 13:28 98.5 84 20 99/55 100 01/19/17 19:47 Room Air 01/19/17 11:03 2.0 Intake and Output 01/19/17 01/19/17 01/20/17 15:00 23:00 07:00 Intake Total 1000 ml 700 ml 1700 ml Output Total 900 ml 800 ml Balance 1000 ml -200 ml 900 ml Exam Constitutional: alert, obese, oriented, No distress Psych: nl mood/affect, No anxiety Head: atraumatic, normocephalic Eyes: EOMI, PERRL, nl conjunctiva, No icteric ENMT: mucosa pink and moist, nl external ears & nose, nl lips & teeth, nl nasal mucosa & septum Neck: non-tender, supple, No jvd Respiratory: normal air movement, No congested cough, No labored breathing Cardiovascular: regular rate and rhythm, No edema Gastrointestinal: soft, tender (Minimal epigastric ), No distended, No rebound or guarding Musculoskeletal: nl extremities to inspection, nl gait and stance, No joint tenderness Extremities: normal pulses, No calf tenderness, No cyanosis Neurological: nl mental status, nl speech, nl strength Skin: nl turgor, No diaphoresis, No rash or lesions Lymph: nl lymph nodes, nontender Results Result Diagram: 01/20/17 0509 01/20/17 0509 Results 24 hrs Laboratory Tests Test 01/20/17 05:09 White Blood Count 7.4 Red Blood Count 3.72 L Hemoglobin 12.0 Hematocrit 35.6 L Mean Corpuscular Volume 95.7 Mean Corpuscular Hemoglobin 32.3 Mean Corpuscular Hemoglobin Concent 33.7 Red Cell Distribution Width 11.6 Platelet Count 300 Mean Platelet Volume 9.9 Neutrophils % 70.3 Lymphocytes % 20.3 Monocytes % 6.9 Eosinophils % 1.8 Basophils % 0.4 Nucleated Red Blood Cells % 0.0 Neutrophils # 5.2 Lymphocytes # 1.5 Monocytes # 0.5 Eosinophils # 0.1 Basophils # 0.0 Nucleated Red Blood Cells # 0.0 Sodium Level 141 Potassium Level 3.7 Chloride Level 109 Carbon Dioxide Level 20 L Anion Gap 16 Blood Urea Nitrogen 5 L Creatinine 0.67 Glucose Level 68 #L Calcium Level 8.3 L Magnesium Level 1.5 L Total Bilirubin 2.2 H Direct Bilirubin 0.00 # Indirect Bilirubin 2.2 H Aspartate Amino Transf (AST/SGOT) 61 H Alanine Aminotransferase (ALT/SGPT) 221 H Alkaline Phosphatase 154 H Total Protein 6.5 Albumin 3.4 Globulin 3.10 Albumin/Globulin Ratio 1.09 Medications Medications Current Medications Ondansetron HCl (Zofran Inj) 4 mg Q6H PRN IV NAUSEA AND/OR VOMITING Last administered on 01/19/17 21:46; Admin Dose 4 MG; Start 01/18/17 at 22:00 Acetaminophen (Tylenol Tab) 650 mg Q6H PRN PO PAIN LEVEL 1-3 OR FEVER; Start 01/18/17 at 22:00 Docusate Sodium (Colace) 100 mg Q12H PRN PO CONSTIPATION; Start 01/18/17 at 22 :00 Bisacodyl (Dulcolax) 5 mg DAILY PRN PO CONSTIPATION; Start 01/18/17 at 22:00 Pantoprazole 40 mg 40 mg DAILY@06 IV Last administered on 01/20/17 05:38; Admin Dose 40 MG; Start 01/19/17 at 06:00 Piperacillin Sod/ Tazobactam Sod (Zosyn 3.375gm/ 50 ml (Pmx)) 50 ml @ 100 mls/ hr Q6 IVPB Last administered on 01/20/17 17:54; Admin Dose 100 MLS/HR; Start 01/18/17 at 22:00 Ketorolac Tromethamine (Toradol) 30 mg Q6H PRN IV PAIN Last administered on 09:32; Admin Dose 30 MG; Start 01/19/17 at 11:30; Stop 01/22/17 at 11: 29 Morphine Sulfate (morphine) 1 mg Q4H PRN IV PAIN LEVEL 4-6; Start 01/19/17 at 11:30 Acetaminophen/ Hydrocodone Bitart ([place] (5/325)) 1 tab Q4H PRN PO PAIN LEVEL 4 -6; Start 01/20/17 at 16:30 LILIANE SAINI MD Jan 20, 2017 19:49
[2017-01-20] MEDS: HYDROCODONE/APAP (5/325) TAB PO PRN (19:59)
[2017-01-20 20:00] VITALS: BP 106/62; RESP 16
[2017-01-21] MEDS: KETOROLAC 30 MG INJ IV PRN ×2 (02:18→16:53)
[2017-01-21 02:26] VITALS: BP 92/55; RESP 14
[2017-01-21] MEDS: PIPER-TAZO 3.375 GM IV (PMX) 50 ML IVPB SCH ×4 (05:32→23:50)
[2017-01-21] MEDS: PANTOPRAZOLE 40 MG INJ IV SCH (05:32)
[2017-01-21 06:21] LABS: BASOPHILS % 0.4 % (0.0-2.0); EOSINOPHILS # 0.3 10^3/ul (0.0-0.5); EOSINOPHILS % 4.9 % (0.0-7.0); HEMATOCRIT 34.5 % (37.0-47.0); HEMOGLOBIN 11.6 g/dl (12.0-16.0); LYMPHOCYTES # 1.5 10^3/ul (0.8-2.9); LYMPHOCYTES % 26.7 % (15.0-51.0); MEAN CORPUSCULAR HEMOGLOBIN 31.9 pg (29.0-33.0); MEAN CORPUSCULAR HGB CONC 33.6 g/dl (32.0-37.0); MEAN CORPUSCULAR VOLUME 94.8 fl (82.0-101.0); MEAN PLATELET VOLUME 10.3 fl (7.4-10.4); MONOCYTE # 0.5 10^3/ul (0.3-0.9); MONOCYTES % 8.6 % (0.0-11.0); NEUTROPHIL # 3.2 10^3/ul (1.6-7.5); PLATELET COUNT 305 10^3/UL (140-415); RED BLOOD COUNT 3.64 10^6/ul (4.20-5.40); RED CELL DISTRIBUTION WIDTH 11.7 % (11.5-14.5); WHITE BLOOD COUNT 5.5 10^3/ul (4.8-10.8)
[2017-01-21 07:32] VITALS: BP 116/58; RESP 18
[2017-01-21 07:32] LABS: ALBUMIN 2.8 g/dl (3.3-4.9); ALBUMIN/GLOBULIN RATIO 0.93; CREATININE 0.76 mg/dl (0.44-1.00); MAGNESIUM 1.9 mg/dl (1.7-2.5); TOTAL PROTEIN 5.8 g/dl (6.1-8.1)
--- NOTE | 2017-01-21 14:35 | PN ---
Date/Time of Note Date/Time of Note DATE: 01/21/17 TIME: 14:30 Assessment/Plan Lines/Catheters IV [facility] (from [facility]): Saline Lock Assessment/Plan Chief Complaint/Hosp Course 1. Abdominal pain with cholelithiasis, choledocholithiasis, gallstone pancreatitis, status post ERCP. Wants to have surgery this hospitalization -Lap yaya this coming week -Judicious fluid management to allow pancreatitis to improve -Pain control 2. Transaminitis secondary to above. Improving -As above 3. Gastritis -Diet and lifestyle optimization 4. BMI 28 -Encourage nutrition optimization -Encourage exercise optimization Thank you, Problems: Subjective 24 Hr Interval Summary Abdominal pain persisting with food intake. Prefers to have surgery. No fevers , chills, cp, sob, cough, sz, rash, bennett, dizziness, visual or neuro changes. Bowel function. Exam/Review of Systems Vital Signs Vitals Vital Signs Date Time Temp Pulse Resp B/P Pulse Ox O2 Delivery O2 Flow Rate FiO2 01/21/17 07:32 98.0 64 18 116/58 99 01/19/17 19:47 Room Air 01/19/17 11:03 2.0 Intake and Output 01/20/17 01/20/17 01/21/17 15:00 23:00 07:00 Intake Total 400 ml 1670 ml 100 ml Output Total 1150 ml Balance 400 ml 520 ml 100 ml Exam Free Text/Dictation Constitutional: alert, obese, oriented, No distress Psych: nl mood/affect, No anxiety Head: atraumatic, normocephalic Eyes: EOMI, PERRL, nl conjunctiva, No icteric ENMT: mucosa pink and moist, nl external ears & nose, nl lips & teeth, nl nasal mucosa & septum Neck: non-tender, supple, No jvd Respiratory: normal air movement, No congested cough, No labored breathing Cardiovascular: regular rate and rhythm, No edema Gastrointestinal: soft, tender (Minimal epigastric/ruq), No distended, No rebound or guarding. Negative murphys Musculoskeletal: nl extremities to inspection, nl gait and stance, No joint tenderness Extremities: normal pulses, No calf tenderness, No cyanosis Neurological: nl mental status, nl speech, nl strength Skin: nl turgor, No diaphoresis, No rash or lesions Lymph: nl lymph nodes, nontender Results Result Diagram: 01/21/17 0521 01/21/17 0521 LILIANE SAINI MD Jan 21, 2017 14:35
--- NOTE | 2017-01-21 14:50 | PN ---
Date/Time of Note Date/Time of Note DATE: 01/21/17 TIME: 14:42 Assessment/Plan VTE Prophylaxis VTE Prophylaxis Intervention: SCD's Lines/Catheters IV Catheter Type (from [facility]): Saline Lock Assessment/Plan Chief Complaint/Hosp Course Assessment/Plan 1. Gallstone pancreatitis s/p ERCP - Patient underwent ERCP yesterday and patient tolerated procedure well, stent placed - Started on clear liquid and advance as tolerated. - Encourage PO pain medications for relief - IV antibiotics - Abdominal US showed dilated common bile duct of 8.4 mm - Lipase levels 391 - Zofran PRN for nausea - Patient remains afebrile with nl WBC - LFT still elevated 2. Acute cholecystitis - MRCP shows acute cholecystitis - LFT elevated, Tbil trending up - general surgery to perform lap yaya this week due to worsening abdominal pain 3. Disposition - Continue monitoring on Med/Surg - monitor abdominal pain, worsened - lap yaya likely this week Problems: Subjective 24 Hr Interval Summary Free Text/Dictation worsening abdominal pain Exam/Review of Systems Vital Signs Vitals Vital Signs Date Time Temp Pulse Resp B/P Pulse Ox O2 Delivery O2 Flow Rate FiO2 01/21/17 07:32 98.0 64 18 116/58 99 01/19/17 19:47 Room Air 01/19/17 11:03 2.0 Intake and Output 01/20/17 01/20/17 01/21/17 15:00 23:00 07:00 Intake Total 400 ml 1670 ml 100 ml Output Total 1150 ml Balance 400 ml 520 ml 100 ml Exam General: Patient is lying in bed, no acute distress HEENT: NC/AT. PERRL, EOMI Neck: Supple with full range of motion. Lungs: Clear to auscultation bilaterally no crackles rales or wheezing Heart: Normal S1-S2, Regular rhythm and rate. No murmur, S3, or S4 Abdomen: Soft, tender to palpation RUQ, normal bowel sounds, no rebound or guarding Extremities: Normal to inspection, no edema no cyanosis Neurologic: moves all extremities spontaneously Results Result Diagram: 01/21/1752001/21/17520 Results 24 hrs Laboratory Tests Test 01/21/17 05:21 White Blood Count 5.5 # Red Blood Count 3.64 L Hemoglobin 11.6 L Hematocrit 34.5 L Mean Corpuscular Volume 94.8 Mean Corpuscular Hemoglobin 31.9 Mean Corpuscular Hemoglobin Concent 33.6 Red Cell Distribution Width 11.7 Platelet Count 305 Mean Platelet Volume 10.3 Neutrophils % 59.0 Lymphocytes % 26.7 Monocytes % 8.6 Eosinophils % 4.9 Basophils % 0.4 Nucleated Red Blood Cells % 0.0 Neutrophils # 3.2 Lymphocytes # 1.5 Monocytes # 0.5 Eosinophils # 0.3 Basophils # 0.0 Nucleated Red Blood Cells # 0.0 Sodium Level 142 Potassium Level 4.0 Chloride Level 109 Carbon Dioxide Level 24 Anion Gap 13 Blood Urea Nitrogen 7 Creatinine 0.76 Glucose Level 87 Calcium Level 8.0 L Magnesium Level 1.9 Total Bilirubin 1.0 Direct Bilirubin 0.00 Indirect Bilirubin 1.0 Aspartate Amino Transf (AST/SGOT) 32 Alanine Aminotransferase (ALT/SGPT) 146 H Alkaline Phosphatase 119 Total Protein 5.8 L Albumin 2.8 L Globulin 3.00 Albumin/Globulin Ratio 0.93 Medications Medications Current Medications Ondansetron HCl (Zofran Inj) 4 mg Q6H PRN IV NAUSEA AND/OR VOMITING Last administered on 01/19/17 21:46; Admin Dose 4 MG; Start 01/18/17 at 22:00 Acetaminophen (Tylenol Tab) 650 mg Q6H PRN PO PAIN LEVEL 1-3 OR FEVER; Start 01/18/17 at 22:00 Docusate Sodium (Colace) 100 mg Q12H PRN PO CONSTIPATION; Start 01/18/17 at 22 :00 Bisacodyl (Dulcolax) 5 mg DAILY PRN PO CONSTIPATION; Start 01/18/17 at 22:00 Pantoprazole 40 mg 40 mg DAILY@06 IV Last administered on 01/21/17 05:32; Admin Dose 40 MG; Start 01/19/17 at 06:00 Piperacillin Sod/ Tazobactam Sod (Zosyn 3.375gm/ 50 ml (Pmx)) 50 ml @ 100 mls/ hr Q6 IVPB Last administered on 01/21/17 12:06; Admin Dose 100 MLS/HR; Start 01/18/17 at 22:00 Ketorolac Tromethamine (Toradol) 30 mg Q6H PRN IV PAIN Last administered on 02:18; Admin Dose 30 MG; Start 01/19/17 at 11:30; Stop 01/22/17 at 11: 29 Morphine Sulfate (morphine) 1 mg Q4H PRN IV PAIN LEVEL 4-6; Start 01/19/17 at 11:30 Acetaminophen/ Hydrocodone Bitart ([place] (5/325)) 1 tab Q4H PRN PO PAIN LEVEL 4 -6 Last administered on 01/20/17t 19:59; Admin Dose 1 TAB; Start 01/20/17 at 16:30 SUSEI DEXTER Jan 21, 2017 14:50
[2017-01-21 15:21] VITALS: BP 111/60; RESP 16
[2017-01-21 20:00] VITALS: BP 109/69; PULSE 55; RESP 16
[2017-01-22 02:09] VITALS: BP 111/60; PULSE 68; RESP 18
[2017-01-22] MEDS: PANTOPRAZOLE 40 MG INJ IV SCH (05:41)
[2017-01-22] MEDS: PIPER-TAZO 3.375 GM IV (PMX) 50 ML IVPB SCH ×3 (05:42→17:20)
[2017-01-22 05:52] LABS: BASOPHILS % 0.5 % (0.0-2.0); EOSINOPHILS # 0.4 10^3/ul (0.0-0.5); EOSINOPHILS % 5.6 % (0.0-7.0); HEMATOCRIT 33.7 % (37.0-47.0); HEMOGLOBIN 11.3 g/dl (12.0-16.0); LYMPHOCYTES # 1.7 10^3/ul (0.8-2.9); LYMPHOCYTES % 26.1 % (15.0-51.0); MEAN CORPUSCULAR HEMOGLOBIN 31.7 pg (29.0-33.0); MEAN CORPUSCULAR HGB CONC 33.5 g/dl (32.0-37.0); MEAN CORPUSCULAR VOLUME 94.4 fl (82.0-101.0); MEAN PLATELET VOLUME 10.3 fl (7.4-10.4); MONOCYTE # 0.5 10^3/ul (0.3-0.9); MONOCYTES % 7.7 % (0.0-11.0); NEUTROPHILS % 59.8 % (39.0-77.0); PLATELET COUNT 258 10^3/UL (140-415); RED BLOOD COUNT 3.57 10^6/ul (4.20-5.40); RED CELL DISTRIBUTION WIDTH 11.8 % (11.5-14.5); WHITE BLOOD COUNT 6.6 10^3/ul (4.8-10.8)
[2017-01-22 06:19] LABS: ALBUMIN/GLOBULIN RATIO 0.93; BILIRUBIN,INDIRECT 1.1 mg/dl (0-1.1); BILIRUBIN,TOTAL 1.1 mg/dl (0.2-1.3); CALCIUM 8.6 mg/dl (8.4-10.2); CREATININE 0.71 mg/dl (0.44-1.00); MAGNESIUM 1.6 mg/dl (1.7-2.5); POTASSIUM 3.8 mmol/L (3.5-5.1); TOTAL PROTEIN 6.2 g/dl (6.1-8.1)
[2017-01-22 08:00] VITALS: BP 105/56; PULSE 100; RESP 16
[2017-01-22] MEDS ORDERED: MAGNESIUM SULFATE 1 GM/D5W 100 ML IVPB ONE (10:00)
--- NOTE | 2017-01-22 12:12 | PN ---
Date/Time of Note Date/Time of Note DATE: 01/22/17 TIME: 12:11 Assessment/Plan VTE Prophylaxis VTE Prophylaxis Intervention: SCD's Lines/Catheters IV [facility] Saline Lock Assessment/Plan Chief Complaint/Hosp Course Assessment/Plan 1. Gallstone pancreatitis s/p ERCP - Patient underwent ERCP yesterday and patient tolerated procedure well, stent placed - Started on clear liquid and advance as tolerated. - Encourage PO pain medications for relief - IV antibiotics - Abdominal US showed dilated common bile duct of 8.4 mm - Lipase levels 391 - Zofran PRN for nausea - Patient remains afebrile with nl WBC - LFT still elevated 2. Acute cholecystitis - MRCP shows acute cholecystitis - LFT elevated, Tbil trending up - general surgery to perform lap yaya this week due to worsening abdominal pain 3. Disposition - Continue monitoring on Med/Surg - monitor abdominal pain, worsened - lap yaya likely this week Problems: Subjective 24 Hr Interval Summary Free Text/Dictation still has intermittent severe abdominal pain in RUQ Exam/Review of Systems Vital Signs Vitals Vital Signs Date Time Temp Pulse Resp B/P Pulse Ox O2 Delivery O2 Flow Rate FiO2 01/22/17 08:00 97.8 100 16 105/56 100 Room Air 01/19/17 11:03 2.0 Intake and Output 01/21/17 01/21/17 01/22/17 15:00 23:00 07:00 Intake Total 830 ml 1570 ml 580 ml Output Total 450 ml 200 ml 500 ml Balance 380 ml 1370 ml 80 ml Exam General: Patient is lying in bed, no acute distress HEENT: NC/AT. PERRL, EOMI Neck: Supple with full range of motion. Lungs: Clear to auscultation bilaterally no crackles rales or wheezing Heart: Normal S1-S2, Regular rhythm and rate. No murmur, S3, or S4 Abdomen: Soft, tender to palpation RUQ, normal bowel sounds, no rebound or guarding Extremities: Normal to inspection, no edema no cyanosis Neurologic: moves all extremities spontaneously Results Result Diagram: 01/22/17 0508 01/22/17 0508 Results 24 hrs Laboratory Tests Test 01/22/17 05:08 White Blood Count 6.6 Red Blood Count 3.57 L Hemoglobin 11.3 L Hematocrit 33.7 L Mean Corpuscular Volume 94.4 Mean Corpuscular Hemoglobin 31.7 Mean Corpuscular Hemoglobin Concent 33.5 Red Cell Distribution Width 11.8 Platelet Count 258 Mean Platelet Volume 10.3 Neutrophils % 59.8 Lymphocytes % 26.1 Monocytes % 7.7 Eosinophils % 5.6 Basophils % 0.5 Nucleated Red Blood Cells % 0.0 Neutrophils # 4.0 Lymphocytes # 1.7 Monocytes # 0.5 Eosinophils # 0.4 Basophils # 0.0 Nucleated Red Blood Cells # 0.0 Sodium Level 141 Potassium Level 3.8 Chloride Level 108 Carbon Dioxide Level 26 Anion Gap 11 Blood Urea Nitrogen 9 Creatinine 0.71 Glucose Level 78 Calcium Level 8.6 Phosphorus Level 4.0 Magnesium Level 1.6 L Total Bilirubin 1.1 Direct Bilirubin 0.00 Indirect Bilirubin 1.1 Aspartate Amino Transf (AST/SGOT) 19 Alanine Aminotransferase (ALT/SGPT) 118 H Alkaline Phosphatase 107 Total Protein 6.2 Albumin 3.0 L Globulin 3.20 Albumin/Globulin Ratio 0.93 Medications Medications Current Medications Ondansetron HCl (Zofran Inj) 4 mg Q6H PRN IV NAUSEA AND/OR VOMITING Last administered on 01/19/17 21:46; Admin Dose 4 MG; Start 01/18/17 at 22:00 Acetaminophen (Tylenol Tab) 650 mg Q6H PRN PO PAIN LEVEL 1-3 OR FEVER; Start 01/18/17 at 22:00 Docusate Sodium (Colace) 100 mg Q12H PRN PO CONSTIPATION; Start 01/18/17 at 22 :00 Bisacodyl (Dulcolax) 5 mg DAILY PRN PO CONSTIPATION; Start 01/18/17 at 22:00 Pantoprazole 40 mg 40 mg DAILY@06 IV Last administered on 01/22/17 05:41; Admin Dose 40 MG; Start 01/19/17 at 06:00 Piperacillin Sod/ Tazobactam Sod (Zosyn 3.375gm/ 50 ml (Pmx)) 50 ml @ 100 mls/ hr Q6 IVPB Last administered on 01/22/17 11:54; Admin Dose 100 MLS/HR; Start 01/18/17 at 22:00 Morphine Sulfate (morphine) 1 mg Q4H PRN IV PAIN LEVEL 4-6; Start 01/19/17 at 11:30 Acetaminophen/ Hydrocodone Bitart ([place] (5/325)) 1 tab Q4H PRN PO PAIN LEVEL 4 -6 Last administered on 01/20/17t 19:59; Admin Dose 1 TAB; Start 01/20/17 at 16:30 SUSIE DEXTER Jan 22, 2017 12:12
[2017-01-22 14:00] VITALS: BP 95/50; PULSE 70; RESP 18
--- NOTE | 2017-01-22 17:59 | PN ---
Date/Time of Note Date/Time of Note DATE: 01/22/17 TIME: 17:58 Assessment/Plan Lines/Catheters IV Catheter Type (from [facility]): Saline Lock Assessment/Plan Chief Complaint/Hosp Course 1. Abdominal pain with cholelithiasis, choledocholithiasis, gallstone pancreatitis, status post ERCP. Wants to have surgery this hospitalization -Lap yaya this coming week -Judicious fluid management to allow pancreatitis to improve -Pain control 2. Transaminitis secondary to above. Improving -As above 3. Gastritis -Diet and lifestyle optimization 4. BMI 28 -Encourage nutrition optimization -Encourage exercise optimization Thank you, Problems: Subjective 24 Hr Interval Summary Abdominal pain persisting with food intake. Prefers to have surgery. No fevers , chills, cp, sob, cough, sz, rash, bennett, dizziness, visual or neuro changes. Bowel function. Exam/Review of Systems Vital Signs Vitals Vital Signs Date Time Temp Pulse Resp B/P Pulse Ox O2 Delivery O2 Flow Rate FiO2 01/22/17 14:00 98.4 70 18 95/50 97 Room Air 01/19/17 11:03 2.0 Intake and Output 01/21/17 01/21/17 01/22/17 15:00 23:00 07:00 Intake Total 830 ml 1570 ml 580 ml Output Total 450 ml 200 ml 500 ml Balance 380 ml 1370 ml 80 ml Exam Free Text/Dictation Constitutional: alert, obese, oriented, No distress Psych: nl mood/affect, No anxiety Head: atraumatic, normocephalic Eyes: EOMI, PERRL, nl conjunctiva, No icteric ENMT: mucosa pink and moist, nl external ears & nose, nl lips & teeth, nl nasal mucosa & septum Neck: non-tender, supple, No jvd Respiratory: normal air movement, No congested cough, No labored breathing Cardiovascular: regular rate and rhythm, No edema Gastrointestinal: soft, tender (Minimal epigastric/ruq), No distended, No rebound or guarding. Negative murphys Musculoskeletal: nl extremities to inspection, nl gait and stance, No joint tenderness Extremities: normal pulses, No calf tenderness, No cyanosis Neurological: nl mental status, nl speech, nl strength Skin: nl turgor, No diaphoresis, No rash or lesions Lymph: nl lymph nodes, nontender Results Result Diagram: 01/22/17 0508 01/22/17 0508 LILIANE SAINI MD Jan 22, 2017 17:59
[2017-01-22 21:04] VITALS: BP 121/79; RESP 16
[2017-01-22] MEDS: HYDROCODONE/APAP (5/325) TAB PO PRN (22:50)
[2017-01-23] VITALS (25 sets, daily range): BP systolic 98–145; BP diastolic 53–86; PULSE 57–87; RESP 8–20
[2017-01-23] MEDS: PIPER-TAZO 3.375 GM IV (PMX) 50 ML IVPB SCH ×4 (01:46→17:23)
[2017-01-23] MEDS: PANTOPRAZOLE (EC) 40 MG TAB PO SCH (05:27)
[2017-01-23 05:56] LABS: BASOPHILS % 0.5 % (0.0-2.0); EOSINOPHILS # 0.4 10^3/ul (0.0-0.5); EOSINOPHILS % 7.2 % (0.0-7.0); HEMATOCRIT 32.8 % (37.0-47.0); HEMOGLOBIN 11.2 g/dl (12.0-16.0); LYMPHOCYTES # 2.3 10^3/ul (0.8-2.9); LYMPHOCYTES % 37.8 % (15.0-51.0); MEAN CORPUSCULAR HEMOGLOBIN 32.1 pg (29.0-33.0); MEAN CORPUSCULAR HGB CONC 34.1 g/dl (32.0-37.0); MEAN PLATELET VOLUME 10.6 fl (7.4-10.4); MONOCYTE # 0.4 10^3/ul (0.3-0.9); MONOCYTES % 6.9 % (0.0-11.0); NEUTROPHIL # 2.9 10^3/ul (1.6-7.5); NEUTROPHILS % 47.3 % (39.0-77.0); PLATELET COUNT 247 10^3/UL (140-415); RED BLOOD COUNT 3.49 10^6/ul (4.20-5.40); RED CELL DISTRIBUTION WIDTH 11.8 % (11.5-14.5); WHITE BLOOD COUNT 6.1 10^3/ul (4.8-10.8)
[2017-01-23 06:42] LABS: IRON 71 ug/dl (35-150)
[2017-01-23 06:51] LABS: TOTAL IRON BINDING CAPACITY 316 ug/dl (241-421)
[2017-01-23 07:01] LABS: CALCIUM 8.7 mg/dl (8.4-10.2); CREATININE 0.8 mg/dl (0.44-1.00); MAGNESIUM 1.7 mg/dl (1.7-2.5)
--- NOTE | 2017-01-23 08:40 | RADRPT ---
PROCEDURE: ERCP CLINICAL INDICATION: Choledocholithiasis. TECHNIQUE: ERCP performed with fluoroscopic images sent to PACS. FLUOROSCOPIC TIME: 88 seconds NUMBER OF IMAGES: 4 COMPARISON: None FINDINGS: Retrograde opacification of the common bile duct demonstrating a nondilated common bile duct and int rahepatic bile ducts with a common bile duct filling defect consistent with a stone. A common bile d uct stent was placed. IMPRESSION: ERCP procedure demonstrating common bile duct stone treated with stent placement. See ERCP dictation for full details. RPTAT:AAJJ Physician Cece Date Time Electronically viewed and signed by Physician Cece on 01/20/2017 08:24 /
[2017-01-23] MEDS ORDERED: ROCURONIUM 50 MG INJ ONE (12:04)
[2017-01-23] MEDS ORDERED: FENTAnyl 50 MCG/ML VIAL ONE (12:04)
[2017-01-23] MEDS ORDERED: PROPOFOL 20 ML ONE (12:04)
[2017-01-23] MEDS ORDERED: ROPIVACAINE 0.2% 20 ML VIAL ONE (12:04)
[2017-01-23] MEDS ORDERED: MIDAZOLAM 1 MG/ML 2 ML INJ ONE (12:04)
[2017-01-23] MEDS ORDERED: LIDOCAINE 1% (MPF) 30 ML INJ ONE (12:14)
[2017-01-23] MEDS ORDERED: BUPIVACAINE 0.5%/EPI (SDV) 30 ML INJ ONE (12:14)
[2017-01-23] MEDS ORDERED: ONDANSETRON 4 MG INJ ONE (12:56)
[2017-01-23] MEDS ORDERED: ACETAMINOPHEN 1000MG/100ML IV 100 ML ONE (12:56)
[2017-01-23] MEDS ORDERED: METOCLOPRAMIDE 10 MG INJ ONE (12:56)
[2017-01-23] MEDS ORDERED: DEXAMETHASONE 4 MG/ML 1 ML INJ ONE (12:57)
[2017-01-23] MEDS ORDERED: SUGAMMADEX SODIUM 200 MG/2 ML VIAL IV ONE (12:57)
[2017-01-23] MEDS ORDERED: KETOROLAC 30 MG INJ ONE (12:57)
--- NOTE | 2017-01-23 13:24 | PN ---
Date/Time of Note Date/Time of Note DATE: 01/23/17 TIME: 13:22 Assessment/Plan Lines/Catheters IV C[facility]ter Type (from [facility]): Saline Lock Assessment/Plan Chief Complaint/Hosp Course 1. Abdominal pain with cholelithiasis, choledocholithiasis, gallstone pancreatitis, status post ERCP. Wants to have surgery this hospitalization -Lap yaya today -Judicious fluid management to allow pancreatitis to improve -Pain control 2. Transaminitis secondary to above. Improving -As above -liver bx 3. Gastritis -Diet and lifestyle optimization 4. BMI 28 -Encourage nutrition optimization -Encourage exercise optimization Thank you, Problems: Subjective 24 Hr Interval Summary Abdominal pain persisting with food intake. Prefers to have surgery. No fevers , chills, cp, sob, cough, sz, rash, bennett, dizziness, visual or neuro changes. Bowel function. Exam/Review of Systems Vital Signs Vitals Vital Signs Date Time Temp Pulse Resp B/P Pulse Ox O2 Delivery O2 Flow Rate FiO2 01/23/17 07:55 97.5 72 18 99/57 97 01/23/17 05:31 Room Air 01/19/17 11:03 2.0 Intake and Output 01/22/17 01/22/17 01/23/17 15:00 23:00 07:00 Intake Total 150 ml 1130 ml 520 ml Balance 150 ml 1130 ml 520 ml Exam Free Text/Dictation Constitutional: alert, obese, oriented, No distress Psych: nl mood/affect, No anxiety Head: atraumatic, normocephalic Eyes: EOMI, PERRL, nl conjunctiva, No icteric ENMT: mucosa pink and moist, nl external ears & nose, nl lips & teeth, nl nasal mucosa & septum Neck: non-tender, supple, No jvd Respiratory: normal air movement, No congested cough, No labored breathing Cardiovascular: regular rate and rhythm, No edema Gastrointestinal: soft, tender (Minimal epigastric/ruq), No distended, No rebound or guarding. Negative murphys Musculoskeletal: nl extremities to inspection, nl gait and stance, No joint tenderness Extremities: normal pulses, No calf tenderness, No cyanosis Neurological: nl mental status, nl speech, nl strength Skin: nl turgor, No diaphoresis, No rash or lesions Lymph: nl lymph nodes, nontender Results Result Diagram: 01/23/17 0458 01/23/17 0458 LILIANE SAINI MD Jan 23, 2017 13:24
[2017-01-23] MEDS ORDERED: MEPERIDINE 25 MG INJ IV PRN (13:30)
[2017-01-23] MEDS ORDERED: FENTAnyl 50 MCG/ML VIAL IV PRN ×2 (13:30)
[2017-01-23] MEDS ORDERED: ONDANSETRON 4 MG INJ IV PRN (13:30)
[2017-01-23] MEDS ORDERED: METOCLOPRAMIDE 10 MG INJ IV PRN (13:30)
[2017-01-23] MEDS ORDERED: DIPHENHYDRAMINE 50 MG INJ IV PRN (13:30)
[2017-01-23] MEDS ORDERED: morphine (1 MG/ML) 10ML SYRINGE IV PRN ×3 (13:30)
[2017-01-23] MEDS ORDERED: EPHEDrine SULFATE 50 MG/5 ML SYG IV PRN (13:30)
--- NOTE | 2017-01-23 13:32 | OPR ---
Date/Time of Note Date/Time of Note DATE: 01/23/17 TIME: 13:29 Operative Report Free Text/Dictation Preoperative Diagnosis: Symptomatic cholelithiasis Choledocholithiasis and gallstone pancreatitis status post ERCP BMI 28 Postoperative Diagnosis: Symptomatic cholelithiasis Choledocholithiasis and gallstone pancreatitis status post ERCP BMI 28 Abnormal liver color Operation(s) Performed: 1. 3 port laparoscopic cholecystectomy 2. Laparoscopic liver wedge resection biopsy 3. Local anesthetic [place], [id number] Surgeon: LILIANE SAINI MD Anesthesia: general, local, & regional Anesthesiologist: MD Madeline Estimated Blood Loss: 10 ml's Specimens: Liver Gallbladder Tubes/Drains: None Complications: None Pt Condition Post Procedure: stable Disposition: PACU Indications: 21-year-old female with gallstones and abdominal pain here for cholecystectomy. Risks include but are not limited to bleeding, infection, abscess, seroma, damage to intestines, damage to the liver, damage to biliary tree, hernia formation, chronic pain, biloma, need for reoperations or further surgeries, NH , stroke, PE, DVT, pneumonia, organ failures, or even . Procedure Description: Patient was brought and placed supine on the operating table SCDs were placed, preoperative antibiotics were administered, all pressure points were well-padded , and after induction of anesthesia patient was prepped and draped in usual sterile fashion and timeout was performed. Incision was made in the supraumbilical region, Veress was safely inserted, and after a negative SIP test , abdomen was insufflated to 15mmHg. Veress was removed and 5mm port was safely inserted. Laparoscopy was performed with a 5 mm 30 scope. No injuries were identified. The liver looks somewhat abnormal color. Gallbladder is without evidence of section. 12 mm port is placed in subxiphoid under direct visualization followed by another 5 mm port in the right upper quadrant. All port sites were injected with quarter percent Marcaine with epi and 1% lidocaine prior to any incisions. Bilateral transversus abdominis plane block was performed by anesthesia prior to prepping the patient. Patient was placed in reverse Trendelenburg and right side up on gallbladder was retracted superolaterally. The gallbladder was large and distended. Using electrocautery and blunt dissection I was able to identify the cystic artery and cystic duct. The duct was dilated but tapered into the gallbladder. Full critical angle view was identified. Both structures were clipped twice proximally and once distally and transected. Clips fully covered the duct. The gallbladder was taken off the liver with electrocautery. Hemostasis was obtained. Gallbladder was placed in an Endo Catch bag and removed through the subxiphoid port site. There was complete hemostasis. Due to the abnormality of the liver decision was made to perform liver wedge resection which was done with electrocautery and scissor with complete hemostasis right after. The specimen was sent to pathology for further evaluation. 12 mm made port site fascia was closed with Endo Close of an 0 Vicryl in a [id number] manner. Ports and CO2 were removed under direct visualization. Next complete hemostasis. Wounds were thoroughly irrigated skin was closed with 4-0 Monocryl in subcuticular fashion. Dermabond was applied. Patient was extubated and transferred to recovery room in stable condition and all counts were correct and the end of the operation 2. LILIANE SAINI MD Jan 23, 2017 13:32
[2017-01-23] MEDS: ONDANSETRON 4 MG INJ IV PRN (13:40)
[2017-01-23] MEDS: FENTAnyl 50 MCG/ML VIAL IV PRN ×2 (13:42→13:49)
[2017-01-24] VITALS (7 sets, daily range): BP systolic 82–117; BP diastolic 49–68; PULSE 61–72; RESP 16–18
[2017-01-24] MEDS: PIPER-TAZO 3.375 GM IV (PMX) 50 ML IVPB SCH ×2 (00:12→05:39)
[2017-01-24] MEDS: PANTOPRAZOLE (EC) 40 MG TAB PO SCH (05:38)
[2017-01-24 06:29] LABS: BASOPHILS % 0.3 % (0.0-2.0); EOSINOPHILS # 0.1 10^3/ul (0.0-0.5); EOSINOPHILS % 0.6 % (0.0-7.0); HEMATOCRIT 36.5 % (37.0-47.0); HEMOGLOBIN 12.3 g/dl (12.0-16.0); LYMPHOCYTES # 1.8 10^3/ul (0.8-2.9); LYMPHOCYTES % 19.2 % (15.0-51.0); MEAN CORPUSCULAR HEMOGLOBIN 31.5 pg (29.0-33.0); MEAN CORPUSCULAR HGB CONC 33.7 g/dl (32.0-37.0); MEAN CORPUSCULAR VOLUME 93.4 fl (82.0-101.0); MEAN PLATELET VOLUME 10.3 fl (7.4-10.4); MONOCYTE # 0.6 10^3/ul (0.3-0.9); MONOCYTES % 6.4 % (0.0-11.0); NEUTROPHIL # 6.8 10^3/ul (1.6-7.5); NEUTROPHILS % 73.1 % (39.0-77.0); PLATELET COUNT 296 10^3/UL (140-415); RED BLOOD COUNT 3.91 10^6/ul (4.20-5.40); RED CELL DISTRIBUTION WIDTH 11.6 % (11.5-14.5); WHITE BLOOD COUNT 9.3 10^3/ul (4.8-10.8)
[2017-01-24 07:18] LABS: ALBUMIN 3.4 g/dl (3.3-4.9); ALBUMIN/GLOBULIN RATIO 1.03; BILIRUBIN,INDIRECT 0.8 mg/dl (0-1.1); BILIRUBIN,TOTAL 0.8 mg/dl (0.2-1.3); CALCIUM 8.9 mg/dl (8.4-10.2); CREATININE 0.75 mg/dl (0.44-1.00); TOTAL PROTEIN 6.7 g/dl (6.1-8.1)
--- NOTE | 2017-01-24 10:05 | PDOCDIS ---
Discharge Instructions CONDITION Patient Condition: Stable HOME CARE INSTRUCTIONS: Special Diet: Clear liquid Diet FOLLOW UP/APPOINTMENTS Follow-up Plan 1. Please follow up with gastroenterology, Dr. Mindy Faulkner, within 1 month for stent removal 2. Please follow up with Dr. Ariel Patricia, general surgery, if any issues with surgery 3. Follow up with your primary care provider provided by your insurance company for any referrals needed SUSIE DEXTER Jan 24, 2017 10:05
[2017-01-24] MEDS ORDERED: HYDR-3498 PO (10:08)
[2017-01-24] MEDS: HYDROCODONE/APAP (5/325) TAB PO PRN (10:16)
--- NOTE | 2017-01-24 11:54 | PN ---
Date/Time of Note Date/Time of Note DATE: 01/24/17 TIME: 11:49 Assessment/Plan Lines/Catheters IV C[facility] Type (from [facility]): Saline Lock Assessment/Plan Chief Complaint/Hosp Course 1. Abdominal pain with cholelithiasis, choledocholithiasis, gallstone pancreatitis, status post ERCP. s/p lap yaya 01/23 -IS -ambulate -ice pack to abdominal wall -advance diet as tolerated -may be discharged per medical team. To follow in office in 1-2 weeks. 2. Transaminitis secondary to above. Improving -As above -liver bx 3. Gastritis -Diet and lifestyle optimization 4. BMI 28 -Encourage nutrition optimization -diet and exercise optimization -encourage weight loss Thank you. Patient seen and examined in collaboration with Dr. Ariel Patricia. Problems: Subjective 24 Hr Interval Summary S/p lap yaya yesterday. Feels well. Tolerating diet. +flatus. Min tenderness kalyani-incisional. No fevers, chills, sob, congested cough, cp, palpitations, bennett, dizziness, n/v/d/dysuria. Exam/Review of Systems Vital Signs Vitals Vital Signs Date Time Temp Pulse Resp B/P Pulse Ox O2 Delivery O2 Flow Rate FiO2 01/24/17 05:37 98.2 72 18 117/68 99 Room Air 01/23/17 13:29 8.0 Intake and Output 01/23/17 01/23/17 01/24/17 14:59 22:59 06:59 Intake Total 800 ml 890 ml 650 ml Output Total 10 ml 400 ml Balance 790 ml 890 ml 250 ml Exam Free Text/Dictation Constitutional: alert, obese, oriented, No distress Psych: nl mood/affect, No anxiety Head: atraumatic, normocephalic Eyes: EOMI, PERRL, nl conjunctiva, No icteric ENMT: mucosa pink and moist, nl external ears & nose, nl lips & teeth, nl nasal mucosa & septum Neck: non-tender, supple, No jvd Respiratory: normal air movement, No congested cough, No labored breathing Cardiovascular: regular rate and rhythm, No edema Gastrointestinal: soft, tender kalyani-incisional, No distended, No rebound or guarding. Negative murphys Musculoskeletal: nl extremities to inspection, nl gait and stance, No joint tenderness Extremities: normal pulses, No calf tenderness, No cyanosis Neurological: nl mental status, nl speech, nl strength Skin: nl turgor, No diaphoresis, No rash or lesions, no kalyani-incisional bruising, discoloration, drainage Lymph: nl lymph nodes, nontender Results Result Diagram: 01/24/17 0550 01/24/17 0550 EDSON MENESES NP Jan 24, 2017 11:54
--- NOTE | 2017-01-24 13:55 | DS ---
Date/Time of Note Date/Time of Note DATE: 01/24/17 TIME: 13:54 Discharge Summary Admission/Discharge Info Admit Date/Time Jan 18, 2017 at 21:47 Discharge Date/Time Patient Condition: Stable Hospital Course Patient is a 21-year-old female who presents with abdominal pain found to have gallstone pancreatitis as well as cholelithiasis. Patient was seen by GI and general surgery and GI performed ERCP and placed a stent in the common bile duct to follow-up within 1 month for removal. Patient also had significant abdominal pain and general surgery removed her gallbladder laparoscopically. A small section of her liver was also taken during the laparoscopic cholecystectomy as it had abnormal color during the surgery. Patient was informed to follow-up with biopsy results and to follow up with GI within 1 month and to follow-up with general surgery within 2 weeks. Patient is to be discharged today. Discharge diagnosis Gallstone pancreatitis Acute cholecystitis Cholelithiasis Abdominal pain Nausea vomiting Home Meds Active Scripts Hydrocodone Bit-Acetaminophen (Hydrocodone Bit-APAP) 5-325MG Tablet, 1 TAB PO Q8 Y for PAIN LEVEL 4-6 for 7 Days, #21 TAB Prov:SUSIE DEXTER 01/24/17 Follow-up Plan 1. Please follow up with gastroenterology, Dr. Mindy Faulkner, within 1 month for stent removal 2. Please follow up with Dr. Ariel Patricia, general surgery, if any issues with surgery 3. Follow up with your primary care provider provided by your insurance company for any referrals needed Primary Care Provider Care Physician No Primary Time spent on discharge: > 30 minutes Pending Labs Laboratory Tests Test 01/24/17 05:50 White Blood Count 9.310^3/ul (4.8-10.8) Red Blood Count 3.9110^6/ul (4.20-5.40) Hemoglobin 12.3g/dl (12.0-16.0) Hematocrit 36.5% (37.0-47.0) Mean Corpuscular Volume 93.4fl (82.0-101.0) Mean Corpuscular Hemoglobin 31.5pg (29.0-33.0) Mean Corpuscular Hemoglobin Concent 33.7g/dl (32.0-37.0) Red Cell Distribution Width 11.6% (11.5-14.5) Platelet Count 39713^3/UL (140-415) Mean Platelet Volume 10.3fl (7.4-10.4) Neutrophils % 73.1% (39.0-77.0) Lymphocytes % 19.2% (15.0-51.0) Monocytes % 6.4% (0.0-11.0) Eosinophils % 0.6% (0.0-7.0) Basophils % 0.3% (0.0-2.0) Nucleated Red Blood Cells % 0.0/100WBC (0.0-0.0) Neutrophils # 6.810^3/ul (1.6-7.5) Lymphocytes # 1.810^3/ul (0.8-2.9) Monocytes # 0.610^3/ul (0.3-0.9) Eosinophils # 0.110^3/ul (0.0-0.5) Basophils # 0.010^3/ul (0.0-0.1) Nucleated Red Blood Cells # 0.010^3/ul (0.0-0.0) Sodium Level 139mmol/L (135-144) Potassium Level 4.0mmol/L (3.5-5.1) Chloride Level 103mmol/L (97-110) Carbon Dioxide Level 28mmol/L (21-31) Anion Gap 12 (8-16) Blood Urea Nitrogen 6mg/dl (7-20) Creatinine 0.75mg/dl (0.44-1.00) Glucose Level 75mg/dl (70-220) Calcium Level 8.9mg/dl (8.4-10.2) Total Bilirubin 0.8mg/dl (0.2-1.3) Direct Bilirubin 0.00mg/dl (0.00-0.20) Indirect Bilirubin 0.8mg/dl (0-1.1) Aspartate Amino Transf (AST/SGOT) 39IU/L (15-46) Alanine Aminotransferase (ALT/SGPT) 99IU/L (13-69) Alkaline Phosphatase 103IU/L (42-121) Total Protein 6.7g/dl (6.1-8.1) Albumin 3.4g/dl (3.3-4.9) Globulin 3.30g/dl (1.3-3.2) Albumin/Globulin Ratio 1.03 SUSIE DEXTER Jan 24, 2017 13:55
[2017-01-24] MEDS ORDERED: SOD CHLORIDE 0.9% 500 ML IV ONE (16:00)
[2017-01-24] MEDS ORDERED: METHOCARBAMOL 500 MG TAB PO SCH (16:00)
[2017-01-24] MEDS: SOD CHLORIDE 0.9% 1,000 ML IV SCH (17:04)
[2017-01-24] MEDS: METHOCARBAMOL 500 MG TAB PO SCH (20:22)
[2017-01-25 01:50] VITALS: BP 96/52; RESP 16
[2017-01-25] MEDS: PANTOPRAZOLE (EC) 40 MG TAB PO SCH (05:34)
[2017-01-25] MEDS: SOD CHLORIDE 0.9% 1,000 ML IV SCH ×2 (06:18→08:26)
[2017-01-25 06:19] LABS: BASOPHILS % 0.4 % (0.0-2.0); EOSINOPHILS # 0.3 10^3/ul (0.0-0.5); EOSINOPHILS % 3.6 % (0.0-7.0); HEMOGLOBIN 11.5 g/dl (12.0-16.0); LYMPHOCYTES # 1.8 10^3/ul (0.8-2.9); LYMPHOCYTES % 22.5 % (15.0-51.0); MEAN CORPUSCULAR HEMOGLOBIN 31.9 pg (29.0-33.0); MEAN CORPUSCULAR HGB CONC 33.8 g/dl (32.0-37.0); MEAN CORPUSCULAR VOLUME 94.2 fl (82.0-101.0); MEAN PLATELET VOLUME 10.7 fl (7.4-10.4); MONOCYTE # 0.5 10^3/ul (0.3-0.9); MONOCYTES % 6.3 % (0.0-11.0); NEUTROPHIL # 5.2 10^3/ul (1.6-7.5); NEUTROPHILS % 66.8 % (39.0-77.0); PLATELET COUNT 257 10^3/UL (140-415); RED BLOOD COUNT 3.61 10^6/ul (4.20-5.40); RED CELL DISTRIBUTION WIDTH 11.8 % (11.5-14.5); WHITE BLOOD COUNT 7.8 10^3/ul (4.8-10.8)
[2017-01-25 06:56] LABS: CALCIUM 8.5 mg/dl (8.4-10.2); CREATININE 0.71 mg/dl (0.44-1.00); MAGNESIUM 1.7 mg/dl (1.7-2.5); PHOSPHORUS 3.8 mg/dl (2.5-4.9); POTASSIUM 4.1 mmol/L (3.5-5.1)
[2017-01-25 07:59] VITALS: BP 110/69; RESP 16
[2017-01-25] MEDS: METHOCARBAMOL 500 MG TAB PO SCH ×2 (08:26→12:24)
--- NOTE | 2017-01-25 12:56 | PN ---
Date/Time of Note Date/Time of Note DATE: 01/25/17 TIME: 12:55 Assessment/Plan Lines/Catheters IV C[facility]ter Type (from [facility]): Peripheral IV Assessment/Plan Chief Complaint/Hosp Course 1. Abdominal pain with cholelithiasis, choledocholithiasis, gallstone pancreatitis, status post ERCP. s/p lap yaya 01/23 -IS -ambulate -ice pack to abdominal wall -may be discharged per medical team. To follow in office in 1-2 weeks. 2. Transaminitis secondary to above. Improving -As above -liver bx 3. Gastritis -Diet and lifestyle optimization 4. BMI 28 -Encourage nutrition optimization -diet and exercise optimization -encourage weight loss Thank you. Patient seen and examined in collaboration with Dr. Ariel Patricia. Problems: Subjective 24 Hr Interval Summary Feels well. +bowel function. Min tenderness kalyani-incision sites- no drainage/ discoloration/bruising. No fevers, chills, sob, congested cough, cp, palpitations, bennett, dizziness, n/v/d/dysuria. Exam/Review of Systems Vital Signs Vitals Vital Signs Date Time Temp Pulse Resp B/P Pulse Ox O2 Delivery O2 Flow Rate FiO2 01/25/17 07:59 98.8 61 16 110/69 100 01/24/17 16:30 Room Air 01/23/17 13:29 8.0 Intake and Output 01/24/17 01/24/17 01/25/17 15:00 23:00 07:00 Intake Total 1660 ml 1140 ml Balance 1660 ml 1140 ml Exam Free Text/Dictation Constitutional: alert, obese, oriented, No distress Psych: nl mood/affect, No anxiety Head: atraumatic, normocephalic Eyes: EOMI, PERRL, nl conjunctiva, No icteric ENMT: mucosa pink and moist, nl external ears & nose, nl lips & teeth, nl nasal mucosa & septum Neck: non-tender, supple, No jvd Respiratory: normal air movement, No congested cough, No labored breathing Cardiovascular: regular rate and rhythm, No edema Gastrointestinal: soft, tender kalyani-incisional, No distended, No rebound or guarding. Musculoskeletal: nl extremities to inspection, nl gait and stance, No joint tenderness Extremities: normal pulses, No calf tenderness, No cyanosis Neurological: nl mental status, nl speech, nl strength Skin: nl turgor, No diaphoresis, No rash or lesions, no kalyani-incisional bruising, discoloration, drainage Lymph: nl lymph nodes, nontender Results Result Diagram: 01/25/17 0527 01/25/17 0527 EDSON MENESES NP Jan 25, 2017 12:56
[2017-01-25 14:23] VITALS: BP 92/50; RESP 16
--- NOTE | 2017-01-25 14:50 | PN ---
Date/Time of Note Date/Time of Note DATE: 01/25/17 TIME: 14:48 Assessment/Plan VTE Prophylaxis VTE Prophylaxis Intervention: ambulation, SCD's Lines/Catheters IV Catheter Type (from [facility]rs): Peripheral IV Assessment/Plan Chief Complaint/Hosp Course S: no acute issues overnight O: Physical exam General: Patient is laying in bed and answers questions appropriately Mentation: Patient is alert and oriented 4, Head: Normocephalic atraumatic Eyes: EOMI, pupils reactive to light Neck: Supple, nontender, midline Respiratory: Clear to auscultation bilaterally Cardiovascular: regular rate, no obvious murmurs Gastrointestinal: non-tender to palpation, bowel sounds heard. Neurological: Moves all extremities spontaneously Skin: No new skin lesions Assessment/Plan 1. Gallstone pancreatitis s/p ERCP - Patient underwent ERCP and patient tolerated procedure well, stent placed - Started on clear liquid and advance as tolerated. - Encourage PO pain medications for relief - IV antibiotics - Abdominal US showed dilated common bile duct of 8.4 mm - Lipase levels 391 - Zofran PRN for nausea - Patient remains afebrile with nl WBC - LFT still elevated 2. Acute cholecystitis - MRCP shows acute cholecystitis - LFT elevated, Tbil trending up - general surgery performed successful lap yaya 3. Disposition - dc today -f/u with GI within 1 month and general surgery within 2 weeks. -patient had mild neck pain yesterday, held DC Problems: Exam/Review of Systems Vital Signs Vitals Vital Signs Date Time Temp Pulse Resp B/P Pulse Ox O2 Delivery O2 Flow Rate FiO2 01/25/17 14:23 98.0 82 16 92/50 99 01/24/17 16:30 Room Air 01/23/17 13:29 8.0 Intake and Output 01/24/17 01/24/17 01/25/17 14:59 22:59 06:59 Intake Total 1660 ml 1140 ml Balance 1660 ml 1140 ml Results Result Diagram: 01/25/1752601/25/17526 Results 24 hrs Laboratory Tests Test 01/25/17 05:27 White Blood Count 7.8 Red Blood Count 3.61 L Hemoglobin 11.5 L Hematocrit 34.0 L Mean Corpuscular Volume 94.2 Mean Corpuscular Hemoglobin 31.9 Mean Corpuscular Hemoglobin Concent 33.8 Red Cell Distribution Width 11.8 Platelet Count 257 Mean Platelet Volume 10.7 H Neutrophils % 66.8 Lymphocytes % 22.5 Monocytes % 6.3 Eosinophils % 3.6 Basophils % 0.4 Nucleated Red Blood Cells % 0.0 Neutrophils # 5.2 Lymphocytes # 1.8 Monocytes # 0.5 Eosinophils # 0.3 Basophils # 0.0 Nucleated Red Blood Cells # 0.0 Sodium Level 139 Potassium Level 4.1 Chloride Level 106 Carbon Dioxide Level 27 Anion Gap 10 Blood Urea Nitrogen 10 Creatinine 0.71 Glucose Level 79 Calcium Level 8.5 Phosphorus Level 3.8 Magnesium Level 1.7 Medications Medications Current Medications Ondansetron HCl (Zofran Inj) 4 mg Q6H PRN IV NAUSEA AND/OR VOMITING Last administered on 01/23/17 13:40; Admin Dose 4 MG; Start 01/18/17 at 22:00 Acetaminophen (Tylenol Tab) 650 mg Q6H PRN PO PAIN LEVEL 1-3 OR FEVER; Start 01/18/17 at 22:00 Docusate Sodium (Colace) 100 mg Q12H PRN PO CONSTIPATION; Start 01/18/17 at 22 :00 Bisacodyl (Dulcolax) 5 mg DAILY PRN PO CONSTIPATION; Start 01/18/17 at 22:00 Morphine Sulfate (morphine) 1 mg Q4H PRN IV PAIN LEVEL 4-6; Start 01/19/17 at 11:30 Acetaminophen/ Hydrocodone Bitart ([place] (5/325)) 1 tab Q4H PRN PO PAIN LEVEL 4 -6 Last administered on 01/24/17 10:16; Admin Dose 1 TAB; Start 01/20/17 at 16:30 Pantoprazole 40 mg 40 mg DAILY@06 PO Last administered on 01/25/17 05:34; Admin Dose 40 MG; Start 01/23/17 at 06:00 Sodium Chloride (NS) 1,000 ml @ 70 mls/hr [id number] IV Last administered on 08:26; Admin Dose 70 MLS/HR; Start 01/24/17 at 16:00 Methocarbamol (Robaxin) 1,000 mg TID PO Last administered on 01/25/17 12:24; Admin Dose 1,000 MG; Start 01/24/17 at 20:00 SUSIE DEXTER Jan 25, 2017 14:50
== END 2017-01-25 14:55 | disposition home or self-care (01) | DRG 417 ==
LOC: FTE 16:53 → MS2 21:47
PROVIDERS: ADMIT Family Medicine; ATTEND Family Medicine
PROC: 0F798DZ Dilation of Common Bile Duct with Intraluminal Device, Via Natural or Artificial Opening Endoscopic (ICD-10-PCS; 2017-01-19)
PROC: 0FC98ZZ Extirpation of Matter from Common Bile Duct, Via Natural or Artificial Opening Endoscopic (ICD-10-PCS; principal; 2017-01-19 19:00)
PROC: 0FT44ZZ Resection of Gallbladder, Percutaneous Endoscopic Approach (ICD-10-PCS; 2017-01-23)
PROC: 0FB03ZX Excision of Liver, Percutaneous Approach, Diagnostic (ICD-10-PCS; 2017-01-23)
DX: K80.42 Calculus of bile duct with acute cholecystitis without obstruction (principal); K85.10 Biliary acute pancreatitis without necrosis or infection; K80.00 Calculus of gallbladder with acute cholecystitis without obstruction; Q44.7 Other congenital malformations of liver; R17 Unspecified jaundice; K29.70 Gastritis, unspecified, without bleeding
CPT/HCPCS: 36415; 74181; 74330; 76705; 80048; 80053; 80061; 81001; 82150; 82728; 83036; 83540; 83690; 83735; 84100; 84443; 84703; 85025; 85610; 85730; 87086; 88304; 88305; 88307; 88312; 88313; 96365; 96375; C2617; C9113; J0131; J1100; J1170; J1885; J2175; J2250; J2270; J2405; J2543; J2710; J2765; J2795; J3010; J3475; J7030; Q9967

== ENCOUNTER 2017-02-07 12:31 | Emergency (ER) | payer SELFPAY ==
[~2017-02-07] VITALS: Wt 72.7 kg
[~2017-02-07 12:31] MED LIST: HYDR-3498 PO
== END 2017-02-07 15:00 | disposition left against medical advice (07) ==
LOC: FTE 12:31 → E/R 15:00
DX: Z53.21 Procedure and treatment not carried out due to patient leaving prior to being seen by health care provider (principal)